=== PATIENT | male | born 1965 | race Caucasian/White ===

== ENCOUNTER 2018-07-04 00:14 | Inpatient (IN) | payer BC ==
--- NOTE | 2018-07-04 00:58 | XR ---
EXAM: XR Chest, 2 Views CLINICAL HISTORY: ITS.REASON XR Reason: Weakness TECHNIQUE: Frontal and lateral views of the chest. COMPARISON: No relevant prior studies available. FINDINGS: Lungs: No consolidation or mass. Pleural space: No effusion. Heart: No cardiomegaly. Mediastinum: Unremarkable. Bones/joints: No acute findings. IMPRESSION: No acute cardiopulmonary process.
[2018-07-04 01:01] LABS: Basophils % (A) 1 %; Eosinophils # (A) 0.2 k/uL (0-0.7); Eosinophils % (A) 3 %; HCT 51.4 % (39.0-53.0); Lymphocytes # (A) 2.1 k/uL (1.0-4.8); Lymphocytes % (A) 31 %; MCH 32.7 pg (25.0-35.0); MCHC 35.1 g/dL (31.0-37.0); MCV 93.3 fL (80.0-100.0); Mean Platelet Volume 6.6; Monocytes # (A) 0.4 k/uL (0-1.0); Monocytes % (A) 5 %; Neutrophils % (A) 58 %; Platelet Count 208 k/uL (150-450); RBC 5.51 m/uL (4.30-5.90); RDW 12.8 % (11.5-15.5); WBC 6.8 k/uL (3.8-10.6)
[2018-07-04] MEDS ORDERED: hydrALAZINE HCL 20 MG/ML 1 ML VIAL IVP STA (01:02)
--- NOTE | 2018-07-04 01:03 | ED ---
Recheck HPI - General Source: patient Mode of arrival: ambulatory Limitations: no limitations <Aliyah Franks - Last Filed: 07/04/18 03:37> <Miesha Mosley - Last Filed: 07/04/18 05:57> - General Chief Complaint: Recheck/Abnormal Lab/Rx Stated Complaint: High Blood Pressure Time Seen by Provider: 07/04/18 00:32 - History of Present Illness Initial Comments: 52-year-old male with past medical history of previous hypertension, currently off medications presenting today for chief complaint of elevation of blood pressure and generalized weakness. Patient states that he just felt off most of the day he cannot further describe this feeling. He states he has had generalized weakness feeling like he has no energy. He states the decreased appetite as well as some nausea. He denies any vomiting, diarrhea, melena, hematochezia, back pain, chest pain, upper extremity paresthesias with jaw pain, fever, urgency, frequency, dysuria. Patient states he so weak he felt like his legs were going to give out on him at one point today. Patient states that this prompted him to take his blood pressure which he noticed was significantly elevated and he present to the emergency department for evaluation. Upon arr ival signs reveal a blood pressure of 231/139. Patient appears well distress. Negative for pain sign. Remaining review of systems negative, patient denies any recent shortness of breath, dyspnea on exertion,abdominal pain, focalized weakness of the upper or lower extremities, loss of sensation/numbness or tingling of the extremities, dysuria or hematuria, constipation, headaches or visual changes, diplopia or any other complaints. (Aliyah Franks) - Related Data Allergies Allergy/AdvReac Type Severity Reaction Status Date / Time No Known Allergies Allergy Verified 07/04/18 00:25 Review of Systems ROS Other: All systems not noted in ROS Statement are negative. <Aliyah Franks - Last Filed: 07/04/18 03:37> ROS Other: All systems not noted in ROS Statement are negative. <Miesha Mosley - Last Filed: 07/04/18 05:57> ROS Statement: Those systems with pertinent positive or pertinent negative responses have been documented in the HPI. Past Medical History Past Medical History: Hyperlipidemia, Hypertension History of Any Multi-Drug Resistant Organisms: None Reported Past Surgical History: Tonsillectomy Additional Past Surgical History / Comment(s): TMJ Past Psychological History: No Psychological Hx Reported Smoking Status: Current every day smoker Past Alcohol Use History: Occasional Past Drug Use History: None Reported <GoldenAliyah Michaud - Last Filed: 07/04/18 03:37> - Past Family History Father History Unknown: Yes Family Medical History: AICD/Pacemaker Sister(s) Family Medical History: Myocardial Infarction ([place]) Additional Family Medical History / Comment(s): Past bypass sx and stents <Miesha Mosley P - Last Filed: 07/04/18 05:57> General Exam Limitations: no limitations <Aliyah Franks - Last Filed: 07/04/18 03:37> - General Exam Comments Initial Comments: General: The patient is awake and alert, in no distress, and does not appear acutely ill. Eye: +3 mm pupils are equal, round and reactive to light, extra-ocular movements are intact. No nystagmus. There is normal conjunctiva bilaterally. No signs of icterus. Ears, nose, mouth and throat: There are moist mucous membranes and no oral lesions. Neck: The neck is supple, there is no tenderness or JVD. Cardiovascular: There is a regular rate and rhythm. No murmur, rub or gallop is appreciated. Respiratory: Lungs are clear to auscultation, respirations are non-labored, breath sounds are equal. No wheezes, stridor, rales, or rhonchi. Gastrointestinal: Soft, non-distended, non-tender abdomen without masses or organomegaly noted. There is no rebound or guarding present. No pulsatile masses. Bowel sounds are unremarkable. Musculoskeletal: Normal ROM, no tenderness. Strength 5/5 of the upper and lower extremities equal and comparison bilaterally. Sensation intact of the upper and lower extremities equal and comparison bilaterally. Radial and DP pulses equal bilaterally 2+. [id number] smooth coordinated. No pronator drift. Neurological: A&O x 3. CN II-XII intact, There are no obvious motor or sensory deficits. Coordination appears grossly intact. Speech is normal. Skin: Skin is warm and dry and no rashes or lesions are noted. No lower extremity edema Psychiatric: Cooperative, appropriate mood & affect, normal judgment. (Aliyah Franks) Course Vital Signs 07/04/18 07/04/18 07/04/18 00:21 00:37 00:40 Temperature 98.6 F Pulse Rate 90 84 Respiratory 18 30 H 33 H Rate Blood Pressure 231/139 O2 Sat by Pulse 98 Oximetry 07/04/18 07/04/18 07/04/18 00:54 01:00 01:13 Temperature Pulse Rate 88 82 81 Respiratory 14 29 H 17 Rate Blood Pressure O2 Sat by Pulse Oximetry 07/04/18 07/04/18 07/04/18 01:20 01:23 01:40 Temperature Pulse Rate 81 80 90 Respiratory 26 H 16 24 Rate Blood Pressure 200/122 196/110 O2 Sat by Pulse 100 95 Oximetry 07/04/18 07/04/18 07/04/18 01:50 02:10 02:20 Temperature Pulse Rate 95 100 101 H Respiratory 23 8 L 18 Rate Blood Pressure 193/109 183/103 183/100 O2 Sat by Pulse 94 L 95 93 L Oximetry 07/04/18 07/04/18 07/04/18 02:30 02:40 02:50 Temperature Pulse Rate 92 96 98 Respiratory 11 L 15 26 H Rate Blood Pressure 169/101 174/97 165/96 O2 Sat by Pulse 94 L 94 L 94 L Oximetry 07/04/18 04:30 Temperature 98.4 F Pulse Rate 88 Respiratory 10 L Rate Blood Pressure 177/113 O2 Sat by Pulse 95 Oximetry Medical Decision Making - Lab Data Result diagrams: 07/04/18 00:47 07/04/18 00:47 <Aliyah Franks - Last Filed: 07/04/18 03:37> - Lab Data Result diagrams: 07/04/18 00:47 07/04/18 00:47 <Miesha Mosley - Last Filed: 07/04/18 05:57> - Medical Decision Making 52-year-old male presenting for generalized weakness and elevation of blood pressure. Initial blood pressure reading 231/139. Patient has no focal neurolo gical deficits. No oliguria, anuria. No complaints of chest pain or shortness of breath. CXR WNL. EKG no ST elevation or depression. EKG evaluated by myself and Dr. Mosley. Pt BP decreased by 25% MAP using hydralazine and Vasotec. Patient troponin returned elevated 0.015. Remaining laboratory studies within acceptable limits. Creatinine within normal limits. Patient will be elevated for serial troponins. ASA administered. Patient admitted for hypertensive emergency. Cardiology on consult. Patient agreeable to admission, all questions answered to the best of my ability. Pt transferred to the floor in stable condition. Critical time spent: 35 minutes History, Physical, reviewing labs, relaying results to patient, clinical decision making, disposition with attending provider. (Aliyah Franks) I personally saw and examined the patient. I reviewed and agree with the mid- level provider findings including all diagnostic interpretations and treatment plans as written unless otherwise stated. I discussed patient care with Dr. Au who accepts the admission for hypertensive emergency with elevated troponin. (Miesha Mosley) - Lab Data Lab Results 07/04/18 07/04/18 07/04/18 Range/Units 00:47 00:47 00:47 WBC 6.8 (3.8-10.6) k/uL RBC 5.51 (4.30-5.90) m/uL Hgb 18.0 H (13.0-17.5) gm/dL Hct 51.4 (39.0-53.0) % MCV 93.3 (80.0-100.0) fL MCH 32.7 (25.0-35.0) pg MCHC 35.1 (31.0-37.0) g/dL RDW 12.8 (11.5-15.5) % Plt Count 208 (150-450) k/uL Neutrophils % 58 % Lymphocytes % 31 % Monocytes % 5 % Eosinophils % 3 % Basophils % 1 % Neutrophils # 4.0 (1.3-7.7) k/uL Lymphocytes # 2.1 (1.0-4.8) k/uL Monocytes # 0.4 (0-1.0) k/uL Eosinophils # 0.2 (0-0.7) k/uL Basophils # 0.0 (0-0.2) k/uL PT 10.3 (9.0-12.0) sec INR 1.0 (<1.2) APTT 24.9 (22.0-30.0) sec Sodium 135 L (137-145) mmol/L Potassium 4.0 (3.5-5.1) mmol/L Chloride 101 (98-107) mmol/L Carbon Dioxide 25 (22-30) mmol/L Anion Gap 9 mmol/L BUN 15 (9-20) mg/dL Creatinine 0.85 (0.66-1.25) mg/dL Est GFR (CKD-EPI)AfAm >90 (>60 ml/min/1.73 sqM) Est GFR (CKD-EPI)NonAf >90 (>60 ml/min/1.73 sqM) Glucose 105 H (74-99) mg/dL Calcium 9.2 (8.4-10.2) mg/dL Total Bilirubin 1.3 (0.2-1.3) mg/dL AST 53 (17-59) U/L ALT 49 (21-72) U/L Alkaline Phosphatase 77 (38-126) U/L Troponin I (0.000-0.034) ng/mL Total Protein 7.2 (6.3-8.2) g/dL Albumin 4.6 (3.5-5.0) g/dL 07/04/18 Range/Units 00:47 WBC (3.8-10.6) k/uL RBC (4.30-5.90) m/uL Hgb (13.0-17.5) gm/dL Hct (39.0-53.0) % MCV (80.0-100.0) fL MCH (25.0-35.0) pg MCHC (31.0-37.0) g/dL RDW (11.5-15.5) % Plt Count (150-450) k/uL Neutrophils % % Lymphocytes % % Monocytes % % Eosinophils % % Basophils % % Neutrophils # (1.3-7.7) k/uL Lymphocytes # (1.0-4.8) k/uL Monocytes # (0-1.0) k/uL Eosinophils # (0-0.7) k/uL Basophils # (0-0.2) k/uL PT (9.0-12.0) sec INR (<1.2) APTT (22.0-30.0) sec Sodium (137-145) mmol/L Potassium (3.5-5.1) mmol/L Chloride (98-107) mmol/L Carbon Dioxide (22-30) mmol/L Anion Gap mmol/L BUN (9-20) mg/dL Creatinine (0.66-1.25) mg/dL Est GFR (CKD-EPI)AfAm (>60 ml/min/1.73 sqM) Est GFR (CKD-EPI)NonAf (>60 ml/min/1.73 sqM) Glucose (74-99) mg/dL Calcium (8.4-10.2) mg/dL Total Bilirubin (0.2-1.3) mg/dL AST (17-59) U/L ALT (21-72) U/L Alkaline Phosphatase (38-126) U/L Troponin I 0.015 (0.000-0.034) ng/mL Total Protein (6.3-8.2) g/dL Albumin (3.5-5.0) g/dL - EKG Data EKG Comments: A 12-lead EKG was performed and shows the following: Rate is 83bpm, and rhythm is normal sinus. There are normal QRS complexes. ST segments have no elevation or depression, and CT segments appear normal. Left axis deviation. 83 bpm, CT interval 156 ms, QRS samaritan 94 ms, QT/QTC 404/474 ms. (Aliyah Franks) Disposition Is patient prescribed a controlled substance at d/c from ED?: No Time of Disposition: 03:06 Decision to Admit Reason: Admit from EC Decision Date: 07/04/18 Decision Time: 03:06 <Aliyah Franks - Last Filed: 07/04/18 03:37> <Miesha Mosley - Last Filed: 07/04/18 05:57> Clinical Impression: Hypertensive emergency, Elevated troponin, Generalized weakness Disposition: ADMITTED IP TO THIS HOSP Condition: Stable
[2018-07-04 01:12] LABS: ALT 49 U/L (21-72); AST 53 U/L (17-59); Albumin 4.6 g/dL (3.5-5.0); Alkaline Phosphatase 77 U/L (38-126); Anion Gap 9 mmol/L; Blood Urea Nitrogen 15 mg/dL (9-20); Calcium 9.2 mg/dL (8.4-10.2); Carbon Dioxide 25 mmol/L (22-30); Chloride 101 mmol/L (98-107); Glucose 105 mg/dL (74-99); Sodium 135 mmol/L (137-145); Total Bilirubin 1.3 mg/dL (0.2-1.3); Total Protein 7.2 g/dL (6.3-8.2)
[2018-07-04 01:33] LABS: Partial Thromboplastin Time 24.9 sec (22.0-30.0); Prothrombin Time 10.3 sec (9.0-12.0)
[2018-07-04] MEDS ORDERED: ENALAPRILAT 1.25 MG/ML 1 ML VIAL IVP STA ×2 (01:56→02:29)
[2018-07-04] MEDS ORDERED: ASPIRIN 325 MG TAB PO STA (02:17)
[2018-07-04] MEDS ORDERED: NITROGLYCERIN SL TABS 0.4 MG TAB SUBLINGUAL PRN (03:04)
[2018-07-04 04:21] LABS: Appearance,Urine Clear (Clear); Bilirubin,Urine Negative (Negative); Blood,Urine Negative (Negative); Color,Urine Yellow; Glucose,Urine (UA) Negative (Negative); Ketones,Urine Trace (Negative); Leukocyte Esterase,Urine Negative (Negative); Nitrite,Urine Negative (Negative); Protein,Urine Trace (Negative); Specific Gravity,Urine 1.016 (1.001-1.035)
[2018-07-04 05:12] LABS: Glucose,Whole Blood 116 mg/dL (75-99)
[2018-07-04 05:19] VITALS: BMI 35.7
[2018-07-04] MEDS: LISINOPRIL 20 MG TAB PO SCH ×2 (05:49→05:50)
[2018-07-04] MEDS: ENALAPRILAT 1.25 MG/ML 1 ML VIAL IVP PRN (06:54)
--- NOTE | 2018-07-04 09:24 | P.CRDCN ---
History of Present Illness Consult date: 07/04/18 History of present illness: This is a 52-year-old gentleman with history of smoking and family history of ischemic heart disease who was admitted through the emergency room with complaints of extreme weakness and fatigue. Apparently the symptoms started suddenly yesterday morning. Patient also had poor appetite. In the emergency room, His blood pressure was found to be in the range of about 220/130. Patient was treated with IV Vasotec and hydralazine with better control of his blood pressure. He denied any chest pain or shortness of breath. He claimed that he had high blood pressure in the past when he was overweight. He was treated with medication at the time. However, patient does exercise and lost weight and he was taken off the medications. Recently patient came his weight back, but hasn't checked his blood pressures. Since admission, it was noted that his blood pressure was high in the left arm compared to the right arm. There appears to be a difference of about 30-40 mmHg. He doesn't have any symptoms of pain in the right arm. His pedal pulses appear to be intact. At this time I will add Norvasc to the current regimen for further control of blood pressure. I'll get thyroid function studies. I will get arterial Doppler studies. We'll also get an echocardiogram and lipid panel. Further condition depend upon the findings and about test and clinical course. Patient does have history of ischemic heart disease in the family. One of his sister had bypass surgery in her 50s. Review of Systems REVIEW OF SYSTEMS: CONSTITUTIONAL:. Patient is doing well. No complaints of fever or chills EYES: Denies diplopia, blurring of vision EARS, NOSE, MOUTH, THROAT: Denies headaches, denies sore throat. CARDIOVASCULAR: Denies chest pain, denies shortness of breath, denies palpitations RESPIRATORY: Denies shortness of breath, denies cough. GASTROINTESTINAL: Denies change in appetite, denies abdominal pain, denies diarrhea GENITOURINARY: Denies hematuria, denies infections. MUSKULOSKELETAL: Denies pain, denies swelling. Denies any cramps or claudication INTEGUMENTARY: Denies rash, denies eczema. NEUROLOGICAL: Denies focal weakness, or visual disturbance. Denies any dizziness or syncope PSYCHIATRIC: Denies anxiety, denies depression. HEMATOLOGIC/LYMPHATIC: Denies any bleeding, denies enlarged lymph nodes. Past Medical History Past Medical History: Hyperlipidemia, Hypertension History of Any Multi-Drug Resistant Organisms: None Reported Past Surgical History: Tonsillectomy Additional Past Surgical History / Comment(s): TMJ Past Psychological History: No Psychological Hx Reported Smoking Status: Current every day smoker Past Alcohol Use History: Occasional Past Drug Use History: None Reported - Past Family History Father History Unknown: Yes Family Medical History: AICD/Pacemaker Sister(s) Family Medical History: Myocardial Infarction ([place]) Additional Family Medical History / Comment(s): Past bypass sx and stents Medications and Allergies Home Medications Medication Instructions Recorded Confirmed Type No Known Home Medications 07/04/18 07/04/18 History Allergies Allergy/AdvReac Type Severity Reaction Status Date / Time No Known Allergies Allergy Verified 07/04/18 07:41 Physical Exam Vitals: Vital Signs Temp Pulse Resp BP BP BP Pulse Ox 07/04/18 08:05 78 144/90 07/04/18 08:03 144/90 07/04/18 08:00 98.0 F 79 16 162/104 162/104 94 L 07/04/18 06:45 87 25 H 179/109 07/04/18 04:37 86 16 170/96 94 L 07/04/18 04:30 98.4 F 88 10 L 177/113 95 07/04/18 02:50 98 26 H 165/96 94 L 07/04/18 02:40 96 15 174/97 94 L 07/04/18 02:30 92 11 L 169/101 94 L 07/04/18 02:20 101 H 18 183/100 93 L 07/04/18 02:10 100 8 L 183/103 95 07/04/18 01:50 95 23 193/109 94 L 07/04/18 01:40 90 24 196/110 95 07/04/18 01:23 80 16 200/122 100 07/04/18 01:20 81 26 H 07/04/18 01:13 81 17 07/04/18 01:00 82 29 H 07/04/18 00:54 88 14 07/04/18 00:40 84 33 H 07/04/18 00:37 30 H 07/04/18 00:21 98.6 F 90 18 231/139 98 Intake and Output 07/03/18 07/04/18 07/04/18 22:59 06:59 14:59 Other: # Voids 1 Weight 122.8 kg GENERAL EXAM: Patient is alert and oriented and doesn't appear to be in any acute distress HEENT: Normocephalic. Normal reaction of pupils, equal size, normal range of extraocular motion. No erythema or exudates in the throat. NECK: No masses, no nuchal rigidity. CHEST: No chest wall deformity. LUNGS: Equal air entry with no crackles or wheeze. HEART: S1 and S2 normal with no audible mumurs or gallops. Regular rhythm, femorals equal on both sides.. ABDOMEN: No hepatosplenomegaly, normal bowel sounds, no guarding or rigidity. SKIN: No rashes CENTRAL NERVOUS SYSTEM: No focal deficits. EXTREMITIES: No cyanosis, clubbing or edema. Results 07/04/18 00:47 07/04/18 00:47 Cardiac Enzymes 07/04/18 07/04/18 07/04/18 Range/Units 00:47 00:47 05:12 AST 53 (17-59) U/L Troponin I 0.015 0.023 (0.000-0.034) ng/mL Coagulation 07/04/18 Range/Units 00:47 PT 10.3 (9.0-12.0) sec APTT 24.9 (22.0-30.0) sec CBC 07/04/18 Range/Units 00:47 WBC 6.8 (3.8-10.6) k/uL RBC 5.51 (4.30-5.90) m/uL Hgb 18.0 H (13.0-17.5) gm/dL Hct 51.4 (39.0-53.0) % Plt Count 208 (150-450) k/uL Comprehensive Metabolic Panel 07/04/18 Range/Units 00:47 Sodium 135 L (137-145) mmol/L Potassium 4.0 (3.5-5.1) mmol/L Chloride 101 (98-107) mmol/L Carbon Dioxide 25 (22-30) mmol/L BUN 15 (9-20) mg/dL Creatinine 0.85 (0.66-1.25) mg/dL Glucose 105 H (74-99) mg/dL Calcium 9.2 (8.4-10.2) mg/dL AST 53 (17-59) U/L ALT 49 (21-72) U/L Alkaline Phosphatase 77 (38-126) U/L Total Protein 7.2 (6.3-8.2) g/dL Albumin 4.6 (3.5-5.0) g/dL Current Medications Generic Name Dose Route Start Last Admin Trade Name Freq PRN Reason Stop Dose Admin Amlodipine Besylate 5 mg 07/04/18 09:30 Norvasc PO DAILY DAVID Aspirin 325 mg 07/05/18 09:00 Aspirin PO DAILY DAVID Enalaprilat 1.25 mg 07/04/18 05:32 07/04/18 06:54 Vasotec IVP 1.25 mg Q6HR PRN Administration Blood Pressure - High Lisinopril 20 mg 07/04/18 05:32 07/04/18 05:50 Zestril PO Not Given DAILY DAVID Nitroglycerin 0.4 mg 07/04/18 03:04 Nitrostat SUBLINGUAL Q5M PRN Chest Pain Intake and Output 07/03/18 07/04/18 07/04/18 22:59 06:59 14:59 Other: # Voids 1 Weight 122.8 kg 07/04/18 00:47 07/04/18 00:47 EKG Interpretations (text) Sinus rhythm without any acute changes Assessment and Plan (1) Generalized weakness Current Visit: Yes Status: Acute Code(s): R53.1 - WEAKNESS SNOMED Code(s): 69243019 (2) Hypertensive emergency Current Visit: Yes Status: Acute Code(s): I16.1 - HYPERTENSIVE EMERGENCY SNOMED Code(s): 388429355625037 (3) Peripheral vascular disease Current Visit: Yes Status: Acute Code(s): I73.9 - PERIPHERAL VASCULAR DISEASE, UNSPECIFIED SNOMED Code(s): 268854959 (4) Family history of ischemic heart disease Current Visit: Yes Status: Acute Code(s): Z82.49 - FAMILY HX OF ISCHEM HEART DIS AND OTH DIS OF THE CIRC SYS SNOMED Code(s): 101599030 Plan: Patient will be continued on CRIS inhibitor. I will add amlodipine 5 mg. We'll check thyroid function studies. We'll also get an arterial Doppler studies. Echocardiogram will be done. Further recommendations depend upon the findings on the above test and clinical course
[2018-07-04] MEDS ORDERED: amLODIPine 5 MG TAB PO SCH (09:30)
[2018-07-04 09:44] LABS: Magnesium 1.8 mg/dL (1.6-2.3)
--- NOTE | 2018-07-04 11:29 | P.HPIM ---
History of Present Illness H&P Date: 07/04/18 This is a 52-year-old male patient of Dr. Breen. Patient presented to the ER with complaints of elevated blood pressure. Patient reports that he just felt off yesterday including increased weakness and warm. Patient also complained of decreased appetite with some nausea. Patient reports that he was previously on medication for high blood pressure and had lost weight and no longer required. Additional medical history includes hyperlipidemia and nicotine dependence. on Admission blood pressure 231/139. Chest x-ray completed showing no acute cardiopulmonary process. EKG completed showing normal sinus rhythm, possible left atrial enlargement. Per nursing staff patient had significant difference in blood pressures from left to right arm. Upper extremity ultrasound completed results pending. Cardiology services have been consulted. Patient was given Vasotec and hydralazine IV. Patient has been started on Norvasc and lisinopril. Blood pressure has improved. At this time patient denies chest pain or shortness of breath. Patient denies nausea vomiting or diarrhea. Patient de nies any urinary burning or frequency. Review of Systems Reviewed in electronic record Past Medical History Past Medical History: Hyperlipidemia, Hypertension History of Any Multi-Drug Resistant Organisms: None Reported Past Surgical History: Tonsillectomy Additional Past Surgical History / Comment(s): TMJ Past Psychological History: No Psychological Hx Reported Smoking Status: Current every day smoker Past Alcohol Use History: Occasional Past Drug Use History: None Reported - Past Family History Father History Unknown: Yes Family Medical History: AICD/Pacemaker Sister(s) Family Medical History: Myocardial Infarction ([place]) Additional Family Medical History / Comment(s): Past bypass sx and stents Medications and Allergies Home Medications Medication Instructions Recorded Confirmed Type No Known Home Medications 07/04/18 07/04/18 History Allergies Allergy/AdvReac Type Severity Reaction Status Date / Time No Known Allergies Allergy Verified 07/04/18 07:41 Physical Exam Vitals: Vital Signs Temp Pulse Resp BP BP BP Pulse Ox 07/04/18 08:05 78 144/90 07/04/18 08:03 144/90 07/04/18 08:00 98.0 F 79 16 162/104 162/104 94 L 07/04/18 06:45 87 25 H 179/109 07/04/18 04:37 86 16 170/96 94 L 07/04/18 04:30 98.4 F 88 10 L 177/113 95 03/13/19 02:50 98 26 H 165/96 94 L 07/04/18 02:40 96 15 174/97 94 L 07/04/18 02:30 92 11 L 169/101 94 L 07/04/18 02:20 101 H 18 183/100 93 L 07/04/18 02:10 100 8 L 183/103 95 07/04/18 01:50 95 23 193/109 94 L 07/04/18 01:40 90 24 196/110 95 07/04/18 01:23 80 16 200/122 100 07/04/18 01:20 81 26 H 07/04/18 01:13 81 17 07/04/18 01:00 82 29 H 07/04/18 00:54 88 14 07/04/18 00:40 84 33 H 07/04/18 00:37 30 H 07/04/18 00:21 98.6 F 90 18 231/139 98 Intake and Output 07/03/18 07/04/18 07/04/18 22:59 06:59 14:59 Other: Voiding Method Toilet Urinal # Voids 1 Weight 122.8 kg Head normocephalic Neck supple Lungs clear to auscultation bilaterally no wheezing or crackles Heart regular rate and rhythm S1-S2, no rub or gallop Abdomen is soft nontender nondistended positive bowel sounds no hepatosplenomegaly Extremities no edema Neuro alert and orientated to 3 Results CBC & Chem 7: 07/04/18 00:47 07/04/18 00:47 Labs: Abnormal Lab Results - Last 24 Hours (Table) 07/04/18 07/04/18 07/04/18 Range/Units 00:47 00:47 00:47 Hgb 18.0 H (13.0-17.5) gm/dL Sodium 135 L (137-145) mmol/L Glucose 105 H (74-99) mg/dL POC Glucose (mg/dL) (75-99) mg/dL LDL Cholesterol, Calc 113 H (0-99) mg/dL HDL Cholesterol 65 H (40-60) mg/dL Urine Protein (Negative) Urine Ketones (Negative) 07/04/18 07/04/18 Range/Units 04:00 05:01 Hgb (13.0-17.5) gm/dL Sodium (137-145) mmol/L Glucose (74-99) mg/dL POC Glucose (mg/dL) 116 H (75-99) mg/dL LDL Cholesterol, Calc (0-99) mg/dL HDL Cholesterol (40-60) mg/dL Urine Protein Trace H (Negative) Urine Ketones Trace H (Negative) Thrombosis Risk Factor Assmnt - Choose All That Apply Any of the Below Risk Factors Present?: Yes Each Factor Represents 1 point: Age 41-60 years, Obesity (BMI >25) Other Risk Factors: No Thrombosis Risk Factor Assessment Total Risk Factor Score: 2 Thrombosis Risk Factor Assessment Level: Low Risk Assessment and Plan Assessment: 1. Hypertensive emergency. Initial blood pressure 231/139 patient was given IV hydralazine and Vasotec. Cardiac he services consulted. 2-D echo has been ordered. Norvasc and lisinopril has been added. Blood pressure has improved to 140s. Per nursing staff patient had given difference in blood pressure between left and right arm. Ultrasound of upper extremity ordered 2. Hyperlipidemia 3. Previous history of essential hypertension. Patient reports that he was on antihypertensives in the past but then lost weight and no longer required 3. Nicotine dependence. Patient educated greater than 3 minutes patient. Nicotine patch ordered DVT prophylaxis Lovenox. GI prophylaxis CBC, CMP and hemoglobin A1c ordered Cardiology consulted Time with Patient: Greater than 30 (Greater than 60% of the total time spent in counseling and coordination of care. I performed an examination of the patient and discussed their management with the Nurse Practitioner. I have reviewed the Nurse Practitioner's notes and agree with the documented findings and plan of care)
--- NOTE | 2018-07-04 12:51 | ECHOF ---
Referral Reason:Chest pain and cardiomyopathy MEASUREMENTS -------- HEIGHT: 185.4 cm WEIGHT: 122.5 kg BP: 144/90 RVIDd: 3.4 cm (< 3.3) IVSd: 1.5 cm (0.6 - 1.1) LVIDd: 4.8 cm (3.9 - 5.3) LVPWd: 1.5 cm (0.6 - 1.1) IVSs: 1.8 cm LVIDs: 2.1 cm LVPWs: 1.8 cm LAESV Index (A-L): 18.34 ml/m Ao Diam: 3.8 cm (2.0 - 3.7) AV Cusp: 2.1 cm (1.5 - 2.6) LA Diam: 3.4 cm (2.7 - 3.8) MV E Jesús: 0.69 m/s MV DecT: 292 ms MV A Jesús: 1.01 m/s MV E/A Ratio: 0.69 AV maxP.25 mmHg AV meanP.99 mmHg RAP: 5.00 mmHg RVSP: 20.23 mmHg FINDINGS -------- Sinus rhythm. This was a technically adequate study. The left ventricular size is normal. There is moderate concentric left ventricular hypertrophy. O verall left ventricular systolic function is normal with, an EF between 60 - 65 %. The right ventricle is mildly enlarged. Normal LA size by volume 22+/-6 ml/m2. The right atrium is normal in size. The aortic valve is trileaflet and appears structurally normal. Peak/mean gradient across the Aorti c Valve is 15.25mmHg / 9.99mmHg. The mitral valve is normal. Mild mitral regurgitation is present. Trace tricuspid regurgitation present. Right ventricular systolic pressure is normal at < 35 mmHg. The right ventricular systolic pressure, as measured by Doppler, is 20.23mmHg. Trace/mild (physiologic) pulmonic regurgitation. The aortic root size is normal. Normal inferior vena cava with normal inspiratory collapse consistent with estimated right atrial pre ssure of 5 mmHg. There is no pericardial effusion. CONCLUSIONS -------- 1. Sinus rhythm. 2. This was a technically adequate study. 3. The left ventricular size is normal. 4. There is moderate concentric left ventricular hypertrophy. 5. Overall left ventricular systolic function is normal with, an EF between 60 - 65 %. 6. The right ventricle is mildly enlarged. 7. Normal LA size by volume 22+/-6 ml/m2. 8. The aortic valve is trileaflet and appears structurally normal. 9. Peak/mean gradient across the Aortic Valve is 15.25mmHg / 9.99mmHg. 10. Mild mitral regurgitation is present. 11. Trace tricuspid regurgitation present. 12. Right ventricular systolic pressure is normal at < 35 mmHg. 13. Trace/mild (physiologic) pulmonic regurgitation. 14. The aortic root size is normal. 15. There is no pericardial effusion. FUSION JUNCTURE GRINDER: Jarred Maloney RDCS
[2018-07-04] MEDS: NICOTINE 14MG/24HR PATCH TRANSDERM SCH (14:07)
[2018-07-04 19:00] LABS: Hemoglobin A1C 5.4 % (4.0-6.0)
[2018-07-05 05:00] LABS: Basophils % (A) 1 %; Eosinophils # (A) 0.2 k/uL (0-0.7); Eosinophils % (A) 3 %; HCT 52.7 % (39.0-53.0); HGB 17.7 gm/dL (13.0-17.5); Lymphocytes # (A) 2.2 k/uL (1.0-4.8); Lymphocytes % (A) 34 %; MCH 32.6 pg (25.0-35.0); MCHC 33.7 g/dL (31.0-37.0); MCV 96.8 fL (80.0-100.0); Mean Platelet Volume 6.2; Monocytes # (A) 0.4 k/uL (0-1.0); Monocytes % (A) 7 %; Neutrophils # (A) 3.5 k/uL (1.3-7.7); Neutrophils % (A) 54 %; Platelet Count 200 k/uL (150-450); RBC 5.44 m/uL (4.30-5.90); RDW 13.2 % (11.5-15.5); WBC 6.5 k/uL (3.8-10.6)
[2018-07-05 05:10] LABS: ALT 37 U/L (21-72); AST 32 U/L (17-59); Albumin 3.7 g/dL (3.5-5.0); Alkaline Phosphatase 66 U/L (38-126); Anion Gap 6 mmol/L; Blood Urea Nitrogen 14 mg/dL (9-20); Calcium 9.4 mg/dL (8.4-10.2); Carbon Dioxide 25 mmol/L (22-30); Chloride 105 mmol/L (98-107); Cholesterol 180 mg/dL (<200); Glucose 105 mg/dL (74-99); HDL Cholesterol 57 mg/dL (40-60); LDL Cholesterol,Calculated 97 mg/dL (0-99); Potassium 4.2 mmol/L (3.5-5.1); Sodium 136 mmol/L (137-145); Total Bilirubin 2.3 mg/dL (0.2-1.3); Total Protein 6.1 g/dL (6.3-8.2); Triglycerides 128 mg/dL (<150)
[2018-07-05] MEDS: LISINOPRIL 20 MG TAB PO SCH ×2 (08:07→20:41)
[2018-07-05] MEDS: ASPIRIN 325 MG TAB PO SCH (08:07)
[2018-07-05] MEDS: PANTOPRAZOLE 40 MG TABLET PO SCH (08:07)
[2018-07-05] MEDS: amLODIPine 10 MG TAB PO SCH (08:07)
[2018-07-05] MEDS: ENOXAPARIN 40 MG/0.4 ML SYRINGE SQ SCH (08:07)
[2018-07-05] MEDS: NICOTINE 14MG/24HR PATCH TRANSDERM SCH (08:07)
--- NOTE | 2018-07-05 08:17 | P.PN ---
Progress Note - Text Progress Note Date: 07/05/18 This is a 51-year-old gentleman who was admitted with complaints of generalized weakness and uncontrolled hypertension. His thyroid function test came back normal. His blood pressure seemed to be better controlled. Still seemed to be on the high side. Denies any chest pain or shortness of breath. No arrhythmias noted. Lungs are clear. Heart is regular. I'm going to increase the dose of the Norvasc to 10 mg and add hydrochlorothiazide. Increase activity as tolerated. Possible discharge within 24 hours. Lab values showed a hemoglobin of 417.7. White count is 6.5. Electoral lites are within normal limits. Creatinine is 0.76. Vascular studies did not reveal any significant evidence of obstruction. Final report is pending. GENERAL EXAM: Patient is alert and oriented and doesn't appear to be in any acute distress HEENT: Normocephalic. Normal reaction of pupils, equal size, normal range of extraocular motion. No erythema or exudates in the throat. NECK: No masses, no nuchal rigidity. CHEST: No chest wall deformity. LUNGS: Equal air entry with no crackles or wheeze. HEART: S1 and S2 normal with no audible mumurs or gallops. Regular rhythm, femorals equal on both sides.. ABDOMEN: No hepatosplenomegaly, normal bowel sounds, no guarding or rigidity. SKIN: No rashes CENTRAL NERVOUS SYSTEM: No focal deficits. EXTREMITIES: No cyanosis, clubbing or edema. Final impression: #1. Uncontrolled hypertension. #2. Generalized weakness. Plan: Increase the dose of the Norvasc and add hydrochlorothiazide. Patient could be discharged home. Follow-up as an outpatient
[2018-07-05] MEDS ORDERED: NICOTINE 14MG/24HR PATCH TRANSDERM SCH (09:00)
[2018-07-05] MEDS: HYDROCHLOROTHIAZIDE 25 MG TAB PO SCH (09:43)
[2018-07-05] MEDS: ENALAPRILAT 1.25 MG/ML 1 ML VIAL IVP PRN (14:29)
--- NOTE | 2018-07-05 14:46 | P.PN ---
Subjective Progress Note Date: 07/05/18 This is a 52-year-old male patient of Dr. Breen. Patient presented to the ER with complaints of elevated blood pressure. Patient reports that he just felt off yesterday including increased weakness and warm. Patient also complained of decreased appetite with some nausea. Patient reports that he was previously on medication for high blood pressure and had lost weight and no longer required. Additional medical history includes hyperlipidemia and nicotine dependence. on Admission blood pressure 231/139. Chest x-ray completed showing no acute cardiopulmonary process. EKG completed showing normal sinus rhythm, possible left atrial enlargement. Per nursing staff patient had significant difference in blood pressures from left to right arm. Upper extremity ultrasound completed results pending. Cardiology services have been consulted. Patient was given Vasotec and hydralazine IV. Patient has been started on Norvasc and lisinopril. Blood pressure has improved. At this time patient denies chest pain or shortness of breath. Patient denies nausea vomiting or diarrhea. Patient denies any urinary burning or frequency. on 07/05/2018 patient is alert and oriented 3. Patient has been started on lisinopril, hydrochlorothiazide and Norvasc per cardiology. Patient's blood pressure remains elevated in the 170s. Will increase lisinopril this time. Discussed with patient home first one more night in the hospital. Patient requesting to stay 1 more night due to living on his own. Patient denies chest pain or shortness breath. Patient denies nausea vomiting or diarrhea. Patient denies any urinary burning or frequency Objective - Vital Signs Vital signs: Vital Signs Temp 97.5 F L 07/05/18 04:00 Pulse 82 07/05/18 13:09 Resp 18 07/05/18 08:00 BP 157/100 07/05/18 14:32 Pulse Ox 94 L 07/05/18 11:49 Intake & Output 07/04/18 07/05/18 07/05/18 18:59 06:59 18:59 Intake Total 600 Output Total 550 650 Balance -550 -650 600 Intake: Oral 600 Output: Urine 550 650 Other: Voiding Method Toilet Toilet Toilet Urinal Urinal Urinal # Voids 1 3 - Exam Head normocephalic Neck supple Lungs clear to auscultation bilaterally no wheezing or crackles Heart regular rate and rhythm S1-S2, no rub or gallop Abdomen is soft nontender nondistended positive bowel sounds no hepatosplenomegaly Extremities no edema Neuro alert and orientated to 3 - Labs CBC & Chem 7: 07/05/18 04:35 07/05/18 04:35 Labs: Abnormal Lab Results - Last 24 Hours (Table) 07/05/18 07/05/18 Range/Units 04:35 04:35 Hgb 17.7 H (13.0-17.5) gm/dL Sodium 136 L (137-145) mmol/L Glucose 105 H (74-99) mg/dL Total Bilirubin 2.3 H (0.2-1.3) mg/dL Total Protein 6.1 L (6.3-8.2) g/dL Assessment and Plan Assessment: 1. Hypertensive emergency. Initial blood pressure 231/139 patient was given IV hydralazine and Vasotec. Cardiac he services consulted. 2-D echo has been ordered. Norvasc and lisinopril has been added. Blood pressure has improved to 140s. Per nursing staff patient had given difference in blood pressure between left and right arm. Ultrasound of upper extremity ordered. Blood pressure remains elevated. Patient currently on lisinopril, hydrochlorothiazide and Norvasc. Will increase lisinopril and continue to monitor for 1 more night 2. Hyperlipidemia 3. Previous history of essential hypertension. Patient reports that he was on antihypertensives in the past but then lost weight and no longer required 3. Nicotine dependence. Patient educated greater than 3 minutes patient. Nicotine patch ordered DVT prophylaxis Lovenox. GI prophylaxis Globin A1c 5.4 I performed an examination of the patient and discussed their management with the Nurse Practitioner. I have reviewed the Nurse Practitioner's notes and agree with the documented findings and plan of care
[2018-07-05] MEDS: LABETALOL 100 MG TAB PO SCH ×2 (17:32→23:41)
[2018-07-05] MEDS ORDERED: LABETALOL 100 MG TAB PO SCH (21:00)
[2018-07-06 05:24] LABS: Basophils % (A) 1 %; Eosinophils # (A) 0.2 k/uL (0-0.7); Eosinophils % (A) 3 %; HCT 48.9 % (39.0-53.0); HGB 16.6 gm/dL (13.0-17.5); Lymphocytes # (A) 2.5 k/uL (1.0-4.8); Lymphocytes % (A) 34 %; MCH 33.1 pg (25.0-35.0); MCV 97.4 fL (80.0-100.0); Mean Platelet Volume 6.3; Monocytes # (A) 0.4 k/uL (0-1.0); Monocytes % (A) 6 %; Neutrophils % (A) 55 %; Platelet Count 193 k/uL (150-450); RBC 5.01 m/uL (4.30-5.90); RDW 13.1 % (11.5-15.5); WBC 7.3 k/uL (3.8-10.6)
[2018-07-06 05:37] LABS: ALT 35 U/L (21-72); AST 34 U/L (17-59); Albumin 3.7 g/dL (3.5-5.0); Alkaline Phosphatase 60 U/L (38-126); Anion Gap 8 mmol/L; Blood Urea Nitrogen 15 mg/dL (9-20); Calcium 9.4 mg/dL (8.4-10.2); Carbon Dioxide 25 mmol/L (22-30); Chloride 101 mmol/L (98-107); Glucose 98 mg/dL (74-99); Potassium 4.1 mmol/L (3.5-5.1); Sodium 134 mmol/L (137-145); Total Bilirubin 1.5 mg/dL (0.2-1.3)
[2018-07-06] MEDS: LABETALOL 100 MG TAB PO SCH (07:53)
[2018-07-06] MEDS: ASPIRIN 325 MG TAB PO SCH (07:53)
[2018-07-06] MEDS: ENOXAPARIN 40 MG/0.4 ML SYRINGE SQ SCH (07:53)
[2018-07-06] MEDS: PANTOPRAZOLE 40 MG TABLET PO SCH (07:53)
[2018-07-06] MEDS: NICOTINE 14MG/24HR PATCH TRANSDERM SCH (07:53)
[2018-07-06] MEDS: HYDROCHLOROTHIAZIDE 25 MG TAB PO SCH (07:53)
[2018-07-06] MEDS: LISINOPRIL 20 MG TAB PO SCH (07:54)
[2018-07-06] MEDS: amLODIPine 10 MG TAB PO SCH (07:54)
[2018-07-06 10:21] VITALS: BP 132/88; RESP 16; TEMP 98.2
[2018-07-06 10:22] VITALS: PULSE 62
--- NOTE | 2018-07-06 12:09 | P.DS ---
Providers Date of admission: 07/04/18 02:49 Expected date of discharge: 07/06/18 Attending physician: Ashwini Au Consults: 07/04/18 03:04 Consult Physician Urgent Consulting Provider: Kwabena Hernandez Consult Reason/Comments: hypertensive emergency Do you want consulting provider notified?: Yes, Notify in am Primary care physician: Grazyna B[facility] Hospital Course: Discharge diagnosis 1. Hypertensive emergency. Initial blood pressure 231/139 patient was given IV hydralazine and Vasotec. Cardiac he services consulted. 2-D echo has been ordered. Norvasc and lisinopril has been added. Blood pressure has improved to 140s. Per nursing staff patient had given difference in blood pressure between left and right arm. Ultrasound of upper extremity ordered. Blood pressure remains elevated. Patient currently on lisinopril, hydrochlorothiazide and Norvasc. Labetalol added per cardiology. Patient will be DC'd home on lisinopril, norvasc, labetolol and hydrochlorothiazide. Patient to follow-up closely with PCP and cardiology services 2. Hyperlipidemia 3. Previous history of essential hypertension. Patient reports that he was on antihypertensives in the past but then lost weight and no longer required 3. Nicotine dependence. Patient educated greater than 3 minutes patient. Nicotine patch ordered. Patient declined nicotine patch upon discharge A1c 5.4 Hospital course This is a 52-year-old male patient of Dr. Breen. Patient presented to the ER with complaints of elevated blood pressure. Patient reports that he just felt off yesterday including increased weakness and warm. Patient also complained of decreased appetite with some nausea. Patient reports that he was previously on medication for high blood pressure and had lost weight and no longer required. Additional medical history includes hyperlipidemia and nicotine dependence. on Admission blood pressure 231/139. Chest x-ray completed showing no acute cardiopulmonary process. EKG completed showing normal sinus rhythm, possible left atrial enlargement. Per nursing staff patient had significant difference in blood pressures from left to right arm. Upper extremity ultrasound completed results pending. Cardiology services have been consulted. Patient was given Vasotec and hydralazine IV. Patient has been started on Norvasc and lisinopril. Blood pressure has improved. At this time patient denies chest pain or shortness of breath. Patient denies nausea vomiting or diarrhea. Patient denies any urinary burning or frequency. on 07/05/2018 patient is alert and oriented 3. Patient has been started on lisinopril, hydrochlorothiazide and Norvasc per cardiology. Patient's blood pressure remains elevated in the 170s. Will increase lisinopril this time. Discussed with patient home first one more night in the hospital. Patient requesting to stay 1 more night due to living on his own. Patient denies chest pain or shortness breath. Patient denies nausea vomiting or diarrhea. Patient denies any urinary burning or frequency On 07/06/2018 patient is alert and oriented 3. Blood pressure significantly im proved. Cardiac he has added labetalol. Patient will be DC'd home on Norvasc, hydrochlorothiazide, labetalol and lisinopril. Patient advised to follow-up closely with his PCP and cardiology services. At this time patient denies chest pain or shortness of breath. Patient denies nausea vomiting or diarrhea. Patient denies any urinary burning or frequency. Patient presents as he feels ready to go home. I performed an examination of the patient and discussed their management with the Nurse Practitioner. I have reviewed the Nurse Practitioner's notes and agree with the documented findings and plan of care Patient Condition at Discharge: Stable Plan - Discharge Summary New Discharge Prescriptions: New Aspirin 81 mg PO DAILY 30 Days #30 chewable Hydrochlorothiazide [Hydrodiuril] 25 mg PO DAILY 30 Days #30 tab amLODIPine [Norvasc] 10 mg PO DAILY 30 Days #30 tab Labetalol [Trandate] 100 mg PO BID 30 Days #60 tab Lisinopril [Zestril] 20 mg PO BID 30 Days #60 tab Discharge Medication List Aspirin 81 mg PO DAILY 30 Days #30 chewable 07/06/18 [Rx] Hydrochlorothiazide [Hydrodiuril] 25 mg PO DAILY 30 Days #30 tab 07/06/18 [Rx] Labetalol [Trandate] 100 mg PO BID 30 Days #60 tab 07/06/18 [Rx] Lisinopril [Zestril] 20 mg PO BID 30 Days #60 tab 07/06/18 [Rx] amLODIPine [Norvasc] 10 mg PO DAILY 30 Days #30 tab 07/06/18 [Rx] Follow up Appointment(s)/Referral(s): Grazyna Breen MD [Primary Care Provider] - 1-2 days Jermaie Granados MD [STAFF PHYSICIAN] - 1 Week Activity/Diet/Wound Care/Special Instructions: Activity as tolerated Diet heart healthy Discharge Disposition: HOME SELF-CARE
--- NOTE | 2018-07-06 12:31 | P.PN ---
Subjective Progress Note Date: 07/06/18 This patient is admitted with uncontrolled hypertension and weakness. Patient is on multiple medication including labetalol 100 mg twice a day. Lisinopril 20 mg twice a day. Hydrochlorothiazide 25 mg and also Norvasc. His blood pressure is better controlled today. He is in the range of 130/80. Patient is feeling better. His echocardiogram showed normal LV function. Patient could be discharged home. Follow-up in the office in one week Objective - Vital Signs Vital signs: Vital Signs Temp 98.2 F 07/06/18 08:00 Pulse 62 07/06/18 10:00 Resp 16 07/06/18 08:00 BP 132/88 07/06/18 08:00 Pulse Ox 93 L 07/06/18 08:00 Intake & Output 07/05/18 07/06/18 07/06/18 18:59 06:59 18:59 Intake Total 1100 Output Total 1800 325 Balance -700 -325 Weight 119.2 kg Intake: Oral 1100 Output: Urine 1800 325 Other: Voiding Method Toilet Toilet Toilet Urinal Urinal Urinal # Voids 3 2 - Exam GENERAL EXAM: Patient is alert and oriented and doesn't appear to be in any acute distress HEENT: Normocephalic. Normal reaction of pupils, equal size, normal range of extraocular motion. No erythema or exudates in the throat. NECK: No masses, no nuchal rigidity. CHEST: No chest wall deformity. LUNGS: Equal air entry with no crackles or wheeze. HEART: S1 and S2 normal with no audible mumurs or gallops. Regular rhythm, femorals equal on both sides.. ABDOMEN: No hepatosplenomegaly, normal bowel sounds, no guarding or rigidity. SKIN: No rashes CENTRAL NERVOUS SYSTEM: No focal deficits. EXTREMITIES: No cyanosis, clubbing or edema. - Labs CBC & Chem 7: 07/06/18 04:33 07/06/18 04:33 Labs: Abnormal Lab Results - Last 24 Hours (Table) 07/06/18 Range/Units 04:33 Sodium 134 L (137-145) mmol/L Total Bilirubin 1.5 H (0.2-1.3) mg/dL Total Protein 6.0 L (6.3-8.2) g/dL Assessment and Plan (1) Generalized weakness Current Visit: Yes Status: Acute Code(s): R53.1 - WEAKNESS SNOMED Code(s): 30994490 (2) Hypertensive emergency Current Visit: Yes Status: Acute Code(s): I16.1 - HYPERTENSIVE EMERGENCY SNOMED Code(s): 787362343944715 (3) Peripheral vascular disease Current Visit: Yes Status: Acute Code(s): I73.9 - PERIPHERAL VASCULAR DISEASE, UNSPECIFIED SNOMED Code(s): 108785484 (4) Family history of ischemic heart disease Current Visit: Yes Status: Acute Code(s): Z82.49 - FAMILY HX OF ISCHEM HEART DIS AND OTH DIS OF THE CIRC SYS SNOMED Code(s): 815852507 Plan: Patient blood pressure is well controlled on current dose of medications. Patient could be discharged home. Follow-up as an outpatient
== END 2018-07-06 15:05 | disposition home or self-care (01) | DRG 305 ==
LOC: EC 00:14 → 2SICU 02:49
PROVIDERS: ADMIT Internal Medicine; ATTEND Internal Medicine
DX: I16.1 Hypertensive emergency (principal); I10 Essential (primary) hypertension; E78.5 Hyperlipidemia, unspecified; F17.200 Nicotine dependence, unspecified, uncomplicated; R74.8 Abnormal levels of other serum enzymes; E66.9 Obesity, unspecified; R53.1 Weakness; I73.9 Peripheral vascular disease, unspecified; Z71.6 Tobacco abuse counseling; Z68.34 Body mass index [BMI] 34.0-34.9, adult; Z82.49 Family history of ischemic heart disease and other diseases of the circulatory system
CPT/HCPCS: 36415; 71046; 80053; 80061; 81003; 83036; 83735; 84443; 84484; 85025; 85610; 85730; 93306; 93923; 96374; 96375; 99285

== ENCOUNTER → 2018-07-26 | Outpatient (CLI) | payer BC ==
[2018-07-26 18:55] LABS: Basophils # (A) 0.1 k/uL (0-0.2); Basophils % (A) 1 %; Eosinophils # (A) 0.2 k/uL (0-0.7); Eosinophils % (A) 2 %; HCT 52.7 % (39.0-53.0); HGB 18.2 gm/dL (13.0-17.5); Lymphocytes # (A) 1.8 k/uL (1.0-4.8); Lymphocytes % (A) 22 %; MCH 32.8 pg (25.0-35.0); MCHC 34.6 g/dL (31.0-37.0); MCV 94.9 fL (80.0-100.0); Mean Platelet Volume 7.4; Monocytes # (A) 0.5 k/uL (0-1.0); Monocytes % (A) 6 %; Neutrophils # (A) 5.3 k/uL (1.3-7.7); Neutrophils % (A) 67 %; Platelet Count 268 k/uL (150-450); RBC 5.55 m/uL (4.30-5.90)
[2018-07-26 19:10] LABS: Anion Gap 11 mmol/L; Blood Urea Nitrogen 14 mg/dL (9-20); Carbon Dioxide 29 mmol/L (22-30); Chloride 100 mmol/L (98-107); Potassium 4.6 mmol/L (3.5-5.1); Sodium 140 mmol/L (137-145)
== END | disposition home or self-care (01) ==
LOC: LABPAT 15:31
PROVIDERS: ATTEND Internal Medicine Cardiovascular Disease
DX: Z01.812 Encounter for preprocedural laboratory examination (principal); I25.118 Atherosclerotic heart disease of native coronary artery with other forms of angina pectoris
CPT/HCPCS: 36415; 80051; 82565; 84520; 85025

== ENCOUNTER 2018-08-07 07:50 | Day surgery (SDC) | payer BC ==
[2018-08-02 10:41] VITALS: BMI 35.6
[~2018-08-07 07:50] MED LIST: ALPRAZolam 0.25 MG TAB PO PRN; ASPIRIN 325 MG TAB PO ONE; NITROGLYCERIN SL TABS 0.4 MG TAB SUBLINGUAL PRN; SODIUM CHLORIDE 0.9% 1,000 ML in EMPTY BAG 1 BAG IV ONE
[2018-08-07] MEDS ORDERED: SODIUM CHLORIDE 0.9% 1,000 ML IV ONE (08:42)
[2018-08-07] MEDS ORDERED: ALPRAZolam 0.25 MG TAB PO ONE (08:42)
[2018-08-07] MEDS ORDERED: LIDOCAINE 1% INJ 10MG/ML (20 ML MDV) ONE (08:56)
[2018-08-07] MEDS ORDERED: fentaNYL (PF) 50 MCG/ML 2 ML AMP ONE (08:56)
[2018-08-07] MEDS ORDERED: VERAPAMIL 2.5 MG/ML 2 ML AMP ONE (08:56)
[2018-08-07] MEDS ORDERED: HEPARIN SODIUM 1,000 UN/ML (10ML VL) ONE (08:57)
[2018-08-07] MEDS: MIDAZOLAM 2 MG/2 ML VIAL IVP ONE ×2 (09:15→10:11)
[2018-08-07] MEDS ORDERED: fentaNYL (PF) 50 MCG/ML 2 ML AMP IV ONE (09:15)
[2018-08-07] MEDS: LIDOCAINE 1% INJ 10MG/ML (20 ML MDV) SQ ONE ×2 (09:18→09:27)
--- NOTE | 2018-08-07 10:03 | P.CARDCATH ---
Date of Procedure: 08/07/18 Preoperative Diagnosis: Positive stress test, family history of ischemic heart disease and hypertension Postoperative Diagnosis: Critical lesion involving the OM branch of the circumflex Procedure(s) Performed: Left heart catheterization without left ventriculography Description of Procedure: HISTORY: This is a 52-year-old gentleman who was recently admitted to the hospital with uncontrolled hypertension and symptoms of shortness of breath. Patient's blood pressure is controlled with medications. His a stress test showed evidence of ischemia involving the inferolateral segments. Patient is advised to have a cardiac catheterization for definitive diagnosis. CONSENT:I have discussed the risks, benefits and alternative therapies for the above-mentioned procedure and for both sedation/analgesia as well as necessary blood product administration, if indicated, as they pertain to this patient. The patient has indicated understanding and acceptance of the risks and procedures discussed. PROCEDURE: Patient was brought to the lab in a fasting state. Patient was given some IV sedation. The right wrist is infiltrated with lidocaine and attempts were made to enter the right radial artery. The pulse was stable and unable been changes. The right coronary artery. The procedure was abandoned and was done from the right femoral approach. The right groin is infiltrated with lidocaine and right femoral artery was entered using Seldinger technique. A 6- [place] catheter was left in place and selective coronary arteriography and left ventriculography was performed. Patient tolerated the procedure well. Femoral angiogram was performed and Angio-Seal was applied for hemostasis. No immediate complications were noted and patient was transferred to [facility] in a stable condition Conscious Sedation: Versed 1mg Fentanyl 50 g Duration 22minutes HEMODYNAMICS: The aortic pressure is 80 to 100 systolic. The left ventricle end-diastolic pressure was about 4. There was no gradient across the aortic valve SELECTIVE CORONARY ARTERIOGRAPHY: LEFT MAIN: The left main is short and divides immediately into the left anterior descending and circumflex. This vessel is free of occlusive disease THE LEFT ANTERIOR DESCENDING CORONARY ARTERY:. This is a good caliber vessel and slightly ectatic and reaches the apex. The vessel is free of any occlusive disease. Use ice to good-sized septal and moderate caliber diagonal branch. THE LEFT CIRCUMFLEX AND IS CORONARY ARTERY: This is a good caliber vessel giving rise to good-sized OM branch. The OM branch has about 90% stenosis in the proximal portion THE RIGHT CORONARY ARTERY:. This is a dominant vessel giving rise to PDA and PLV and good in size. The right coronary artery is free of any significant focal occlusive disease LEFT VENTRICULOGRAPHY: Not performed. LV function by echo is normal FINAL IMPRESSION: Critical lesion involving the OM branch of the circumflex. The rest of the coronary system is free of any occlusive disease PLAN:. Stent placement of the OM branch PROGNOSIS: Fair with successful therapy
[2018-08-07] MEDS ORDERED: BIVALIRUDIN 250 MG in SODIUM CHLORIDE 0.9% 50 ML IV ONE (10:20)
[2018-08-07] MEDS ORDERED: BIVALIRUDIN BOLUS 250 MG/50 ML IV ONE (10:20)
[2018-08-07] MEDS ORDERED: CLOPIDOGREL 75 MG TAB ONE ×2 (10:21→10:22)
[2018-08-07] MEDS ORDERED: CLOPIDOGREL 75 MG TAB PO ONE (10:23)
[2018-08-07] MEDS ORDERED: IOPAMIDOL-370 100ML BTL INJ ONE ×2 (10:29→10:47)
[2018-08-07] MEDS ORDERED: NITROGLYCERIN 1000MCG/10ML SYRINGE INTRACORON ONE (10:33)
[2018-08-07] MEDS ORDERED: MAG HYDROX/AL HYDROX/SIMETH 30 ML CUP PO PRN (10:44)
[2018-08-07] MEDS ORDERED: ZOLPIDEM 5 MG TAB PO PRN (10:44)
[2018-08-07] MEDS ORDERED: RX INFO: IV CONTRAST WAS GIVEN 1 EACH MISC MISCELLANE PRN (10:44)
[2018-08-07] MEDS ORDERED: ATROPINE SULFATE 0.1 MG/ML 10ML SYRINGE IV PRN (10:44)
[2018-08-07] MEDS ORDERED: NITROGLYCERIN SL TABS 0.4 MG TAB SUBLINGUAL PRN (10:44)
[2018-08-07] MEDS ORDERED: SODIUM CHLORIDE 0.9% 1,000 ML IV SCH (10:45)
--- NOTE | 2018-08-07 11:24 | LTR ---
August 07, 2018 Re: Daniel Salazar Dear Dr. Breen: MrJoanna Salazar underwent a heart catheterization by Dr. Granados and was found to have severe disease involving OM1 of the left circumflex. I did perform successful stenting of the left circumflex with good angiographic results and without any complication. Thank you for allowing me to participate in his care and please do not hesitate to call if you have any question or concern. Sincerely, MD NICKIE Ybarra / ERNIEN: [id number] /
--- NOTE | 2018-08-07 11:32 | PTCA ---
PERCUTANEOUSTRANS CORORONARY ANGIOGRAPHY DATE OF SERVICE: 08/07/2018 PERFORMING PHYSICIAN: Nikko Acosta MD, Dairy Powder Mixer Operator. PROCEDURE PERFORMED: Successful stenting of the first obtuse marginal branch of left circumflex using 4.0 x 12 mm Xience CHARISMA with an excellent angiographic result and reduction of stenosis from 90% to 0%. INDICATION: This is a 52-year-old gentleman who sees Dr. Granados in the office as an outpatient who was experiencing chest discomfort and underwent heart catheterization which revealed severe disease involving OM1. The decision was made towards percutaneous coronary intervention. APPROACH: Right common femoral artery. COMPLICATION: None. LEVEL OF SEDATION: Moderate with sedation length of 20 minutes. PROCEDURE DESCRIPTION: Please refer to diagnostic heart catheterization was performed by Dr. Granados. Anticoagulation was achieved with Angiomax. I did engage the left main using XB 3.5 guide. A run-through wire was used to wire the lesion in the OM 1. I did direct stenting using 4.0 x 12 mm Xience CHARISMA where the stent was positioned under fluoroscopy guidance and deployed under 12 atmospheres for 20 seconds with the following angiogram showing excellent angiographic results. The procedure was completed without any complication. POSTPROCEDURE MANAGEMENT: 1. Dual anti-platelet therapy. 2. Risk factors modifications. 3. Follow up with the patient. MMODL / IJN: [id number] /
[2018-08-07] MEDS: LISINOPRIL 20 MG TAB PO SCH (20:44)
[2018-08-07] MEDS: LABETALOL 100 MG TAB PO SCH (20:44)
[2018-08-07 22:36] VITALS: TEMP 98.8
[2018-08-08 06:27] LABS: Basophils % (A) 0 %; Eosinophils # (A) 0.2 k/uL (0-0.7); Eosinophils % (A) 2 %; HCT 43.6 % (39.0-53.0); Lymphocytes # (A) 2.1 k/uL (1.0-4.8); Lymphocytes % (A) 26 %; MCH 32.9 pg (25.0-35.0); MCHC 34.9 g/dL (31.0-37.0); MCV 94.4 fL (80.0-100.0); Mean Platelet Volume 7.2; Monocytes # (A) 0.4 k/uL (0-1.0); Monocytes % (A) 5 %; Neutrophils # (A) 5.1 k/uL (1.3-7.7); Neutrophils % (A) 64 %; Platelet Count 230 k/uL (150-450); RBC 4.62 m/uL (4.30-5.90); RDW 13.7 % (11.5-15.5)
[2018-08-08 06:36] LABS: HGB 15.2 gm/dL (13.0-17.5)
[2018-08-08 06:38] LABS: Anion Gap 5 mmol/L; Blood Urea Nitrogen 14 mg/dL (9-20); Calcium 9.1 mg/dL (8.4-10.2); Carbon Dioxide 31 mmol/L (22-30); Chloride 102 mmol/L (98-107); Glucose 107 mg/dL (74-99); Potassium 4.2 mmol/L (3.5-5.1); Sodium 138 mmol/L (137-145)
[2018-08-08] MEDS: LABETALOL 100 MG TAB PO SCH (08:30)
[2018-08-08] MEDS: LISINOPRIL 20 MG TAB PO SCH (08:30)
[2018-08-08 08:34] VITALS: BP 135/64; PULSE 74; RESP 16
[2018-08-08] MEDS ORDERED: CLOPIDOGREL 75 MG TAB PO SCH (09:00)
[2018-08-08] MEDS ORDERED: ASPIRIN 81 MG PO SCH (09:00)
[2018-08-08] MEDS ORDERED: HYDROCHLOROTHIAZIDE 25 MG TAB PO SCH (09:00)
[2018-08-08] MEDS ORDERED: ISOSORBIDE MONONITRATE ER 30 MG TAB.ER.24H PO SCH (09:00)
[2018-08-08] MEDS ORDERED: NICOTINE 14MG/24HR PATCH TRANSDERM SCH (09:00)
[2018-08-08] MEDS ORDERED: METOPROLOL TARTRATE 12.5 MG TAB PO SCH ×2 (09:00→09:15)
--- NOTE | 2018-08-08 09:00 | P.DS ---
Providers Date of admission: 08/07/2018 Attending physician: Jeramie Granados Consults: 08/07/18 10:44 Consult Physician Routine Consulting Provider: [facility] Consult Reason/Comments: Post Interventional patient Do you want consulting provider notified?: Already Contacted Primary care physician: Grazyna Breen - Discharge Diagnosis(es) (1) CAD (coronary artery disease) Current Visit: Yes Status: Acute (2) S/P coronary artery stent placement Current Visit: Yes Status: Acute (3) Essential hypertension Current Visit: Yes Status: Acute Hospital Course: This patient was brought in for cardiac evaluation because of positive stress test. Patient had a cardiac catheterization and was found to have critical lesion involving the OM branch of the circumflex. Patient had stent placement. Patient has been doing well. The groin is soft without any hematoma. Lungs are clear. Heart is regular. No JVD. No peripheral edema. Patient is being discharged home. Patient will continue nitrates, beta blockers, aspirin and Plavix along with rest of the medication. Patient is advised to add any heavy exertion or pulling or pushing. Follow-up in the office coming Monday. Following that patient will be discharged to go back to work. Plan - Discharge Summary Discharge Rx Participant: Yes New Discharge Prescriptions: New Nitroglycerin Sl Tabs [Nitrostat] 0.4 mg SUBLINGUAL Q5M PRN tab PRN Reason: Chest Pain Clopidogrel [Plavix] 75 mg PO DAILY #90 tab Continue Aspirin 81 mg PO DAILY 30 Days #30 chewable Hydrochlorothiazide [Hydrodiuril] 25 mg PO DAILY 30 Days #30 tab Labetalol [Trandate] 100 mg PO BID 30 Days #60 tab Lisinopril [Zestril] 20 mg PO BID 30 Days #60 tab Nicotine 14Mg/24Hr Patch [Habitrol] 1 patch TRANSDERM DAILY 30 Days #30 patch Isosorbide Mononitrate [Isosorbide Mononitrate ER] 30 mg PO DAILY Nitroglycerin Sl Tabs [Nitrostat] 0.4 mg PO Q5M PRN PRN Reason: Chest Pain Discharge Medication List Aspirin 81 mg PO DAILY 30 Days #30 chewable 07/06/18 [Rx] Hydrochlorothiazide [Hydrodiuril] 25 mg PO DAILY 30 Days #30 tab 07/06/18 [Rx] Labetalol [Trandate] 100 mg PO BID 30 Days #60 tab 03/15/19 [Rx] Lisinopril [Zestril] 20 mg PO BID 30 Days #60 tab 07/06/18 [Rx] Nicotine 14Mg/24Hr Patch [Habitrol] 1 patch TRANSDERM DAILY 30 Days #30 patch 07/06/18 [Rx] Isosorbide Mononitrate [Isosorbide Mononitrate ER] 30 mg PO DAILY 08/02/18 [History] Nitroglycerin Sl Tabs [Nitrostat] 0.4 mg PO Q5M PRN 08/02/18 [History] Clopidogrel [Plavix] 75 mg PO DAILY #90 tab 08/08/18 [Rx] Nitroglycerin Sl Tabs [Nitrostat] 0.4 mg SUBLINGUAL Q5M PRN tab 08/08/18 [Rx] Follow up Appointment(s)/Referral(s): Jeramie Granados MD [STAFF PHYSICIAN] - 08/13/18 2:00 pm (Monday) Patient Instructions/Handouts: Heart Healthy Diet (DC), Coronary Intravascular Stent Placement (DC) Discharge Disposition: HOME SELF-CARE
== END 2018-08-08 10:43 | disposition home or self-care (01) ==
LOC: CATHCVL 07:50 → 3SCARD 10:47 → CATHCVL 08-08 10:43
PROVIDERS: ATTEND Internal Medicine Cardiovascular Disease
DX: I25.10 Atherosclerotic heart disease of native coronary artery without angina pectoris (principal); I10 Essential (primary) hypertension; Z71.6 Tobacco abuse counseling; F17.210 Nicotine dependence, cigarettes, uncomplicated; Z82.49 Family history of ischemic heart disease and other diseases of the circulatory system; Z79.82 Long term (current) use of aspirin; Z79.899 Other long term (current) drug therapy
CPT/HCPCS: 93458; 80048; 85025; C9600; C1760; C1887; C1769 ×3; C1894 ×2; C1874; J2250; J2001; J3010; J0583; Q9967

== ENCOUNTER 2019-07-10 06:18 | Emergency (ER) | payer BC ==
[2019-07-10 06:25] VITALS: TEMP 97.8
[2019-07-10] MEDS ORDERED: IPRATROPIUM-ALBUTEROL 3 ML NEB INHALATION STA ×2 (06:45→07:44)
[2019-07-10] MEDS ORDERED: ALBUTEROL NEBULIZED 2.5 MG/3 ML INHALATION STA (06:46)
[2019-07-10] MEDS ORDERED: LISINOPRIL 20 MG TAB PO STA (06:48)
[2019-07-10] MEDS ORDERED: METOPROLOL TARTRATE 25 MG TAB PO STA (06:48)
--- NOTE | 2019-07-10 07:02 | ED ---
General Adult HPI - General Chief complaint: Shortness of Breath Stated complaint: SOB/Cough/Congestion Time Seen by Provider: 07/10/19 06:26 Source: patient, RN notes reviewed Mode of arrival: ambulatory - History of Present Illness Initial comments: 53-year-old male with a past medical history of hyperlipidemia, hypertension presents to the emergency department for a chief complaint of cough. Patient states he has had a dry cough since this morning. CT disclosing to feel short of breath. Also admits to congestion and runny nose. Patient does not believe he has had fevers. He denies any recent domestic or international travel. Patient does have history of smoking. Patient has no other complaints at this time including chest pain, abdominal pain, nausea or vomiting, headache, or visual changes. - Related Data Home Medications Medication Instructions Recorded Confirmed Isosorbide Mononitrate [Isosorbide 30 mg PO DAILY 08/02/18 07/10/19 Mononitrate ER] Metoprolol Tartrate [Lopressor] 25 mg PO BID 07/10/19 07/10/19 Previous Rx's Medication Instructions Recorded Aspirin 81 mg PO DAILY 30 Days #30 chewable 07/06/18 Lisinopril [Zestril] 20 mg PO BID 30 Days #60 tab 07/06/18 Atorvastatin [Lipitor] 80 mg PO HS #30 tab 08/08/18 Clopidogrel [Plavix] 75 mg PO DAILY #90 tab 08/08/18 Allergies Allergy/AdvReac Type Severity Reaction Status Date / Time No Known Allergies Allergy Verified 07/10/19 08:55 Review of Systems ROS Statement: Those systems with pertinent positive or pertinent negative responses have been documented in the HPI. ROS Other: All systems not noted in ROS Statement are negative. Past Medical History Past Medical History: Hyperlipidemia, Hypertension Additional Past Medical History / Comment(s): recent admission for extremely high BP per pt., see Dr. Granados H & P History of Any Multi-Drug Resistant Organisms: None Reported Past Surgical History: Heart Catheterization With Stent, Tonsillectomy Additional Past Surgical History / Comment(s): TMJ surg., vasectomy stent OM 08-07-18 Past Anesthesia/Blood Transfusion Reactions: No Reported Reaction, Family History of Problems w/ Anesthesia Date of Last Stent Placement:: 08-07-18 Past Psychological History: No Psychological Hx Reported Smoking Status: Former smoker Past Alcohol Use History: Occasional Past Drug Use History: None Reported - Past Family History Father History Unknown: Yes Family Medical History: AICD/Pacemaker Sister(s) Family Medical History: Myocardial Infarction ([place]) Additional Family Medical History / Comment(s): Past bypass sx and stents General Exam General appearance: alert, in no apparent distress Head exam: Present: atraumatic, normocephalic, normal inspection Eye exam: Present: normal appearance, PERRL, EOMI. Absent: scleral icterus, conjunctival injection, periorbital swelling ENT exam: Present: normal exam, mucous membranes moist, TM's normal bilaterally, normal external ear exam. Absent: normal oropharynx (Patient does have erythematous oropharynx however no tonsillar exudates noted bilaterally) Neck exam: Present: normal inspection, full ROM. Absent: tenderness, meningismus, lymphadenopathy Respiratory exam: Present: decreased breath sounds (minimally diminished). Absent: respiratory distress, wheezes, rales, rhonchi, stridor Cardiovascular Exam: Present: regular rate, normal rhythm, normal heart sounds. Absent: systolic murmur, diastolic murmur, rubs, gallop, clicks GI/Abdominal exam: Present: soft, normal bowel sounds. Absent: distended, tenderness, guarding, rebound, rigid Neurological exam: Present: alert Psychiatric exam: Present: normal affect, normal mood Course Vital Signs 07/10/19 07/10/19 07/10/19 06:22 06:49 07:09 Temperature 97.8 F Pulse Rate 84 84 Respiratory 19 Rate Blood Pressure 165/112 151/105 O2 Sat by Pulse 97 Oximetry 07/10/19 07/10/19 07/10/19 07:22 08:00 08:22 Temperature Pulse Rate 88 82 85 Respiratory 18 Rate Blood Pressure 153/96 O2 Sat by Pulse 98 Oximetry 07/10/19 07/10/19 08:35 09:00 Temperature Pulse Rate 86 90 Respiratory 18 Rate Blood Pressure 147/96 O2 Sat by Pulse 98 Oximetry EKG Findings - EKG Comments: EKG Findings:: Normal sinus rhythm, ventricular rate 80, TN interval 164, QTc 472 Medical Decision Making - Medical Decision Making Vitals are stable. Patient does have history of hypertension and did not take his morning medications. Therefore these were given. Patient is complaining of cough and shortness of breath. Cough is noted. He also has a sore throat. CBC CMP unremarkable. Troponin is negative. D-dimer is normal limit. Influenza negative. Strep is negative. Chest x-ray shows no acute cardio pulmonary process. Patient started to complain of worsening status of breath. However at this time he was ambulating and did not appear in distress. Patient did have high anxiety which was likely contributing to his shortness of breath. Patient was given Ativan and symptoms improved significantly. At this time it is not recommended that he is tested for covid19 given no exposure to a documented infectious person or recent testing or foreign travel. However I did recommend patient's of organ for 14 days and follow-up with his doctor after that time. - Lab Data Result diagrams: 07/10/19 07:55 07/10/19 07:55 Lab Results 07/10/19 07/10/19 07/10/19 Range/Units 06:36 07:50 07:55 WBC 10.4 (3.8-10.6) k/uL RBC 5.04 (4.30-5.90) m/uL Hgb 16.3 (13.0-17.5) gm/dL Hct 46.6 (39.0-53.0) % MCV 92.4 (80.0-100.0) fL MCH 32.3 (25.0-35.0) pg MCHC 34.9 (31.0-37.0) g/dL RDW 12.6 (11.5-15.5) % Plt Count 199 (150-450) k/uL Neutrophils % 79 % Lymphocytes % 13 % Monocytes % 5 % Eosinophils % 1 % Basophils % 0 % Neutrophils # 8.3 H (1.3-7.7) k/uL Lymphocytes # 1.4 (1.0-4.8) k/uL Monocytes # 0.6 (0-1.0) k/uL Eosinophils # 0.1 (0-0.7) k/uL Basophils # 0.0 (0-0.2) k/uL PT (9.0-12.0) sec INR (<1.2) APTT (22.0-30.0) sec D-Dimer (<0.60) mg/L FEU Sodium (137-145) mmol/L Potassium (3.5-5.1) mmol/L Chloride (98-107) mmol/L Carbon Dioxide (22-30) mmol/L Anion Gap mmol/L BUN (9-20) mg/dL Creatinine (0.66-1.25) mg/dL Est GFR (CKD-EPI)AfAm (>60 ml/min/1.73 sqM) Est GFR (CKD-EPI)NonAf (>60 ml/min/1.73 sqM) Glucose (74-99) mg/dL Calcium (8.4-10.2) mg/dL Magnesium (1.6-2.3) mg/dL Total Bilirubin (0.2-1.3) mg/dL AST (17-59) U/L ALT (4-49) U/L Alkaline Phosphatase (38-126) U/L Troponin I (0.000-0.034) ng/mL Total Protein (6.3-8.2) g/dL Albumin (3.5-5.0) g/dL Influenza Type A RNA Not Detected (Not Detectd) Influenza Type B (PCR) Not Detected (Not Detectd) Group A Strep Rapid Negative (Negative) 07/10/19 07/10/19 07/10/19 Range/Units 07:55 07:55 07:55 WBC (3.8-10.6) k/uL RBC (4.30-5.90) m/uL Hgb (13.0-17.5) gm/dL Hct (39.0-53.0) % MCV (80.0-100.0) fL MCH (25.0-35.0) pg MCHC (31.0-37.0) g/dL RDW (11.5-15.5) % Plt Count (150-450) k/uL Neutrophils % % Lymphocytes % % Monocytes % % Eosinophils % % Basophils % % Neutrophils # (1.3-7.7) k/uL Lymphocytes # (1.0-4.8) k/uL Monocytes # (0-1.0) k/uL Eosinophils # (0-0.7) k/uL Basophils # (0-0.2) k/uL PT 9.7 (9.0-12.0) sec INR 0.9 (<1.2) APTT 23.5 (22.0-30.0) sec D-Dimer 0.31 (<0.60) mg/L FEU Sodium 139 (137-145) mmol/L Potassium 4.2 (3.5-5.1) mmol/L Chloride 102 (98-107) mmol/L Carbon Dioxide 25 (22-30) mmol/L Anion Gap 12 mmol/L BUN 12 (9-20) mg/dL Creatinine 0.80 (0.66-1.25) mg/dL Est GFR (CKD-EPI)AfAm >90 (>60 ml/min/1.73 sqM) Est GFR (CKD-EPI)NonAf >90 (>60 ml/min/1.73 sqM) Glucose 108 H (74-99) mg/dL Calcium 9.1 (8.4-10.2) mg/dL Magnesium 2.0 (1.6-2.3) mg/dL Total Bilirubin 1.2 (0.2-1.3) mg/dL AST 31 (17-59) U/L ALT 20 (4-49) U/L Alkaline Phosphatase 84 (38-126) U/L Troponin I <0.012 (0.000-0.034) ng/mL Total Protein 7.6 (6.3-8.2) g/dL Albumin 4.8 (3.5-5.0) g/dL Influenza Type A RNA (Not Detectd) Influenza Type B (PCR) (Not Detectd) Group A Strep Rapid (Negative) Disposition Clinical Impression: Cough Disposition: HOME SELF-CARE Condition: Good Instructions (If sedation given, give patient instructions): Acute Cough (ED) Additional Instructions: Use inhaler as needed. Please self quarantined for the next 14 days. Follow-up with primary care after this time or call to discuss make an appointment. Return to the emergency department if you have any worsening symptoms or increased shortness of breath. Is patient prescribed a controlled substance at d/c from ED?: No Referrals: Grazyna Breen MD [Primary Care Provider] - 1-2 days Time of Disposition: 09:13
--- NOTE | 2019-07-10 07:03 | XR ---
EXAMINATION TYPE: XR chest 2V DATE OF EXAM: 07/10/2019 COMPARISON: Chest x-ray July 04, 2018. HISTORY: Difficulty in breathing. TECHNIQUE: Frontal and lateral views of the chest are obtained. FINDINGS: There is no focal air space opacity, pleural effusion, or pneumothorax seen. The cardiac silhouette size remains within normal limits. The osseous structures are intact. IMPRESSION: No acute cardiopulmonary process. No significant change from prior.
[2019-07-10] MEDS ORDERED: ASPIRIN 81 MG PO STA (07:47)
[2019-07-10] MEDS ORDERED: LORazepam 1 MG TAB PO STA (07:47)
[2019-07-10 08:02] VITALS: RESP 18
[2019-07-10 08:33] LABS: ALT 20 U/L (4-49); AST 31 U/L (17-59); African American GFR (CKD) >90 (>60 ml/min/1.73 sqM); Albumin 4.8 g/dL (3.5-5.0); Alkaline Phosphatase 84 U/L (38-126); Anion Gap 12 mmol/L; Blood Urea Nitrogen 12 mg/dL (9-20); Calcium 9.1 mg/dL (8.4-10.2); Carbon Dioxide 25 mmol/L (22-30); Chloride 102 mmol/L (98-107); Glucose 108 mg/dL (74-99); Non-African American GFR(CKD) >90 (>60 ml/min/1.73 sqM); Potassium 4.2 mmol/L (3.5-5.1); Sodium 139 mmol/L (137-145); Total Bilirubin 1.2 mg/dL (0.2-1.3); Total Protein 7.6 g/dL (6.3-8.2)
[2019-07-10 08:42] LABS: D-Dimer 0.31 mg/L FEU (<0.60); INR 0.9 (<1.2); Partial Thromboplastin Time 23.5 sec (22.0-30.0); Prothrombin Time 9.7 sec (9.0-12.0)
[2019-07-10 08:49] LABS: Basophils % (A) 0 %; Eosinophils # (A) 0.1 k/uL (0-0.7); Eosinophils % (A) 1 %; HCT 46.6 % (39.0-53.0); HGB 16.3 gm/dL (13.0-17.5); Lymphocytes # (A) 1.4 k/uL (1.0-4.8); Lymphocytes % (A) 13 %; MCH 32.3 pg (25.0-35.0); MCHC 34.9 g/dL (31.0-37.0); MCV 92.4 fL (80.0-100.0); Monocytes # (A) 0.6 k/uL (0-1.0); Monocytes % (A) 5 %; Neutrophils # (A) 8.3 k/uL (1.3-7.7); Neutrophils % (A) 79 %; Platelet Count 199 k/uL (150-450); RBC 5.04 m/uL (4.30-5.90); RDW 12.6 % (11.5-15.5); WBC 10.4 k/uL (3.8-10.6)
[2019-07-10 09:03] VITALS: BP 147/96; PULSE 90
== END 2019-07-10 09:22 | disposition home or self-care (01) ==
LOC: EC 06:18
DX: R05 Cough (principal); R06.02 Shortness of breath; J02.9 Acute pharyngitis, unspecified; R09.89 Other specified symptoms and signs involving the circulatory and respiratory systems; F41.9 Anxiety disorder, unspecified; I10 Essential (primary) hypertension; Z79.899 Other long term (current) drug therapy; Z95.5 Presence of coronary angioplasty implant and graft; Z87.891 Personal history of nicotine dependence; Z82.49 Family history of ischemic heart disease and other diseases of the circulatory system
CPT/HCPCS: 36415; 71046; 80053; 83735; 84484; 85025; 85379; 85610; 85730; 87081; 87430; 87502; 93005; 94640; 99285

== ENCOUNTER 2021-02-15 10:44 | Emergency (ER) | payer BC ==
[2021-02-15 10:51] VITALS: TEMP 99.3
[2021-02-15] MEDS ORDERED: SODIUM CHLORIDE 0.9% 500 ML 500 ML IV STA ×2 (11:05→12:27)
--- NOTE | 2021-02-15 11:21 | ED ---
General Adult HPI - General Chief complaint: Shortness of Breath Stated complaint: Seizure,Covid+ Time Seen by Provider: 02/15/21 10:45 Source: patient, EMS, RN notes reviewed Mode of arrival: EMS Limitations: no limitations - History of Present Illness Initial comments: 55-year-old male with a past medical history of hyperlipidemia, hypertension presents to the emergency room for a chief complaint of possible seizure. Patient developed coronavirus symptoms on and then tested positive on Monday. Patient reports that he was at home waiting for an infusion. States he did not sleep well. He went to close his eyes and EMS reported he had a seizure. States it lasted about 30 seconds and then he had a minute of being post ictal. Patient feels he was just drowsy and was falling asleep. Patient denies any bladder or bowel incontinence or biting his tongue. Denies any history of seizures.Patient has no other complaints at this time including shortness of breath, chest pain, abdominal pain, nausea or vomiting, headache, or visual changes. - Related Data Home Medications Medication Instructions Recorded Confirmed Isosorbide Mononitrate [Isosorbide 30 mg PO DAILY 08/02/18 07/10/19 Mononitrate ER] Metoprolol Tartrate [Lopressor] 25 mg PO BID 07/10/19 07/10/19 Previous Rx's Medication Instructions Recorded Aspirin 81 mg PO DAILY 30 Days #30 chewable 07/06/18 lisinopriL [Zestril] 20 mg PO BID 30 Days #60 tab 07/06/18 Atorvastatin [Lipitor] 80 mg PO HS #30 tab 08/08/18 Clopidogrel [Plavix] 75 mg PO DAILY #90 tab 08/08/18 Albuterol Inhaler (Mhu) [Ventolin 1 - 2 puff INHALATION Q6HR PRN #1 07/10/19 Hfa Inhaler (Mhu)] inhaler Dexamethasone [Decadron] 6 mg PO DAILY #6 tablet 02/15/21 Allergies Allergy/AdvReac Type Severity Reaction Status Date / Time No Known Allergies Allergy Verified 07/10/19 08:55 Review of Systems ROS Statement: Those systems with pertinent positive or pertinent negative responses have been documented in the HPI. ROS Other: All systems not noted in ROS Statement are negative. Past Medical History Past Medical History: Hyperlipidemia, Hypertension Additional Past Medical History / Comment(s): recent admission for extremely high BP per pt., see Dr. Granados H & P History of Any Multi-Drug Resistant Organisms: None Reported Past Surgical History: Heart Catheterization With Stent, Tonsillectomy Additional Past Surgical History / Comment(s): TMJ surg., vasectomy stent OM 08-07-18 Past Anesthesia/Blood Transfusion Reactions: No Reported Reaction, Family History of Problems w/ Anesthesia Date of Last Stent Placement:: 08-07-18 Past Psychological History: No Psychological Hx Reported Smoking Status: Never smoker Past Alcohol Use History: Occasional Past Drug Use History: None Reported - Past Family History Father History Unknown: Yes Family Medical History: AICD/Pacemaker Sister(s) Family Medical History: Myocardial Infarction ([place]) Additional Family Medical History / Comment(s): Past bypass sx and stents General Exam Limitations: no limitations General appearance: alert, in no apparent distress Head exam: Present: atraumatic Eye exam: Present: normal appearance, PERRL, EOMI. Absent: scleral icterus, conjunctival injection ENT exam: Present: normal exam, mucous membranes moist Neck exam: Present: normal inspection, full ROM. Absent: tenderness Respiratory exam: Present: normal lung sounds bilaterally. Absent: respiratory distress, wheezes Cardiovascular Exam: Present: regular rate, normal rhythm, normal heart sounds Neurological exam: Present: alert, oriented X3 Course Vital Signs 02/15/21 02/15/21 02/15/21 10:44 10:47 13:03 Temperature 99.3 F Pulse Rate 71 74 Respiratory 18 18 Rate Blood Pressure 120/69 110/67 O2 Sat by Pulse 93 L 97 94 L Oximetry Medical Decision Making - Medical Decision Making Vitals are stable. Patient is 93-95% on room air. CBC unremarkable. CMP does show some mild hyponatremia. Chest x-ray does show findings consistent with bilateral patchy peripheral airspace disease. CT brain shows age-related atrophic and chronic small vessel ischemic changes without acute cranial process. Question whether patient had a seizure. He may have had myoclonic rony jahaira with falling asleep. However he will need to follow-up with his doctor outpatient. We did give him monoclonal antibodies. Patient directed to return to the ER for any additional seizures or for any worsening shortness of breath. - Lab Data Result diagrams: 02/15/21 11:19 02/15/21 11:19 Lab Results 02/15/21 02/15/21 Range/Units 11:19 11:19 WBC 3.9 (3.8-10.6) k/uL RBC 4.91 (4.30-5.90) m/uL Hgb 16.4 (13.0-17.5) gm/dL Hct 45.1 (39.0-53.0) % MCV 92.0 (80.0-100.0) fL MCH 33.4 (25.0-35.0) pg MCHC 36.3 (31.0-37.0) g/dL RDW 12.7 (11.5-15.5) % Plt Count 118 L (150-450) k/uL MPV 7.9 Neutrophils % 71 % Lymphocytes % 20 % Monocytes % 7 % Eosinophils % 0 % Basophils % 1 % Neutrophils # 2.7 (1.3-7.7) k/uL Lymphocytes # 0.8 L (1.0-4.8) k/uL Monocytes # 0.3 (0-1.0) k/uL Eosinophils # 0.0 (0-0.7) k/uL Basophils # 0.0 (0-0.2) k/uL Sodium 130 L (137-145) mmol/L Potassium 3.5 (3.5-5.1) mmol/L Chloride 99 (98-107) mmol/L Carbon Dioxide 23 (22-30) mmol/L Anion Gap 8 mmol/L BUN 12 (9-20) mg/dL Creatinine 0.74 (0.66-1.25) mg/dL Est GFR (CKD-EPI)AfAm >90 (>60 ml/min/1.73 sqM) Est GFR (CKD-EPI)NonAf >90 (>60 ml/min/1.73 sqM) Glucose 118 H (74-99) mg/dL Calcium 8.1 L (8.4-10.2) mg/dL Magnesium 1.8 (1.6-2.3) mg/dL Total Bilirubin 1.1 (0.2-1.3) mg/dL AST 75 H (17-59) U/L ALT 53 H (4-49) U/L Alkaline Phosphatase 53 (38-126) U/L Total Protein 6.3 (6.3-8.2) g/dL Albumin 3.6 (3.5-5.0) g/dL Disposition Clinical Impression: COVID, Pneumonia due to COVID-19 virus Narrative: possible seizure Disposition: HOME SELF-CARE Condition: Fair Instructions (If sedation given, give patient instructions): Coronavirus Disease 2019 (COVID-19) Additional Instructions: Please follow up with your doctor in 1-2 days. Return to the ER for any worsening symptoms. Prescriptions: Dexamethasone [Decadron] 6 mg PO DAILY #6 tablet Is patient prescribed a controlled substance at d/c from ED?: No Referrals: Grazyna Breen MD [Primary Care Provider] - 1-2 days Time of Disposition: 13:26
[2021-02-15] MEDS ORDERED: SODIUM CHLORIDE 0.9% 50 ML IVPB ONE (12:00)
[2021-02-15] MEDS ORDERED: CASIRIVIMAB (REGN10933) (EUA) 600 MG, IMDEVIMAB (REGN10987) (EUA) 600 MG in SODIUM CHLO... IVPB ONE (12:00)
[2021-02-15 12:06] LABS: ALT 53 U/L (4-49); African American GFR (CKD) >90 (>60 ml/min/1.73 sqM); Albumin 3.6 g/dL (3.5-5.0); Anion Gap 8 mmol/L; Blood Urea Nitrogen 12 mg/dL (9-20); Calcium 8.1 mg/dL (8.4-10.2); Carbon Dioxide 23 mmol/L (22-30); Chloride 99 mmol/L (98-107); Glucose 118 mg/dL (74-99); Non-African American GFR(CKD) >90 (>60 ml/min/1.73 sqM); Potassium 3.5 mmol/L (3.5-5.1); Sodium 130 mmol/L (137-145); Total Bilirubin 1.1 mg/dL (0.2-1.3); Total Protein 6.3 g/dL (6.3-8.2)
[2021-02-15 12:07] LABS: AST 75 U/L (17-59); Alkaline Phosphatase 53 U/L (38-126); Magnesium 1.8 mg/dL (1.6-2.3)
--- NOTE | 2021-02-15 12:13 | CT ---
EXAMINATION TYPE: CT brain wo con DATE OF EXAM: 02/15/2021 COMPARISON: None HISTORY: seizure CT DLP: 1099.[address] of the brain was performed. The ventricles, basal cisterns and sulci overlying the cerebral convexities demonstrate mild enlargem ent. There is no evidence for intracranial hemorrhage or sulcal effacement. There is decreased attenuation about the periventricular white matter and deep white matter of both c erebral hemispheres, compatible with chronic small vessel ischemia. Differential diagnosis does inclu de demyelination. No mass effects are seen.No midline shift. Osseous calvarium is intact. Chronic paranasal sinusitis. If symptoms persist consider MRI. IMPRESSION: 1. Age related atrophic and chronic small vessel ischemic change without acute intracranial process s een at this time.
--- NOTE | 2021-02-15 12:23 | XR ---
EXAMINATION TYPE: XR chest 2V DATE OF EXAM: 02/15/2021 COMPARISON: Chest x-ray 07/10/2019 HISTORY: Covid and shortness of breath TECHNIQUE: Frontal and lateral views of the chest are obtained. FINDINGS: Bilateral patchy peripheral airspace disease is noted. No evident pneumothorax or pleural effusion. Cardiac mediastinal silhouette is stable. Bones are unchanged. IMPRESSION: Findings consistent with pneumonia and patient's history
[2021-02-15 12:30] LABS: Basophils % (A) 1 %; Eosinophils % (A) 0 %; HCT 45.1 % (39.0-53.0); HGB 16.4 gm/dL (13.0-17.5); Lymphocytes # (A) 0.8 k/uL (1.0-4.8); Lymphocytes % (A) 20 %; MCH 33.4 pg (25.0-35.0); MCHC 36.3 g/dL (31.0-37.0); Mean Platelet Volume 7.9; Monocytes # (A) 0.3 k/uL (0-1.0); Monocytes % (A) 7 %; Neutrophils # (A) 2.7 k/uL (1.3-7.7); Neutrophils % (A) 71 %; Platelet Count 118 k/uL (150-450); RBC 4.91 m/uL (4.30-5.90); RDW 12.7 % (11.5-15.5); WBC 3.9 k/uL (3.8-10.6)
[2021-02-15] MEDS ORDERED: DEXAMETHASONE SOD PHOSPHATE 10 MG/ML 1 ML VIAL IVP STA (13:47)
[2021-02-15 14:37] VITALS: BP 130/79; PULSE 63; RESP 16
== END 2021-02-15 14:59 | disposition home or self-care (01) ==
LOC: EC 10:44
DX: U07.1 COVID-19 (principal); J12.82 Pneumonia due to coronavirus disease 2019; I10 Essential (primary) hypertension; E78.5 Hyperlipidemia, unspecified; Z79.82 Long term (current) use of aspirin; Z79.51 Long term (current) use of inhaled steroids; Z79.52 Long term (current) use of systemic steroids; Z79.899 Other long term (current) drug therapy
CPT/HCPCS: 36415; 80053; 83735; 85025; 71046; 70450; 99285; 96365; 96375; 96361 ×3; J1100

== ENCOUNTER → 2021-03-09 | Outpatient (CLI) | payer BC ==
--- NOTE | 2021-03-11 03:08 | CT ---
EXAMINATION TYPE: CT angio chest DATE OF EXAM: 03/09/2021 7:11 PM COMPARISON: 02/15/2021 chest radiograph HISTORY: SOB CT DLP: 837 mGycm Automated exposure control for dose reduction was used. CONTRAST: CTA scan of the thorax is performed with IV Contrast, patient injected with 78cc mL of Isovue 370, pu lmonary embolism protocol. . FINDINGS: LUNGS: There are mild scattered groundglass opacities of the bilateral lungs, with improved aeration versus 02/15/2021. There is no pleural effusion or pneumothorax seen. The tracheobronchial tree is p atent. CARDIOVASCULAR: There is suboptimal enhancement of the pulmonary artery and its branches, nondiagnost ic for assessment of pulmonary embolism. The contrast bolus is primarily within the thoracic aorta a nd pulmonary veins. There is no thoracic aortic aneurysm or dissection. The cardiac size is normal, h owever there may be relative left atrial and ventricular enlargement. There is prominent left ventric le wall thickness and suggestion of narrowed left ventricular outflow tract or the aorta. No pericard ial effusion is seen. MEDIASTINAL/SOFT TISSUES no axillary or hilar lymphadenopathy. Prominent mediastinal lymph nodes may be reactive. UPPER ABDOMEN normal adrenal glands. MUSCULOSKELETAL: No acute osseous abnormality. IMPRESSION: 1. Relative prominence of the left atrium and left ventricle. Thickened appearance of the left ventri roly wall and likely narrowing of the left ventricular outflow tract towards the aorta. Differential i ncludes hypertrophic obstructive cardiomyopathy (HOCM). Recommend cardiology consultation and correla tion with echocardiogram. 2. Mild scattered groundglass opacities likely represent resolving Covid 19 pneumonia. There is impro mckenzie aeration of the lungs versus 02/15/2021. 3. Contrast bolus is nondiagnostic for assessment of pulmonary embolism. No thoracic aortic aneurysm or dissection.
== END | disposition home or self-care (01) ==
LOC: RADCTMAIN 18:37
PROVIDERS: ATTEND Internal Medicine Critical Care Medicine
DX: R91.8 Other nonspecific abnormal finding of lung field (principal)
CPT/HCPCS: 71275; Q9967

== ENCOUNTER 2021-03-31 09:42 | Day surgery (SDC) | payer BC ==
[2021-03-29 09:52] VITALS: BMI 39.5
[~2021-03-31 09:42] MED LIST changes: -ALPRAZolam 0.25 MG TAB PO PRN; -ASPIRIN 325 MG TAB PO ONE; +LIDOCAINE 1% (10MG/ML) FOR IV START INTRADERMA PRN; -NITROGLYCERIN SL TABS 0.4 MG TAB SUBLINGUAL PRN; -SODIUM CHLORIDE 0.9% 1,000 ML in EMPTY BAG 1 BAG IV ONE
[2021-03-31 10:31] VITALS: TEMP 98.2
[2021-03-31] MEDS: LACTATED RINGERS 1,000 ML IV SCH ×2 (10:34→11:12)
[2021-03-31] MEDS ORDERED: PROPOFOL 10 MG/ML 50 ML VIAL IV ONE (11:12)
--- NOTE | 2021-03-31 11:33 | P.PCN ---
Date of Procedure: 03/31/21 Procedure(s) Performed: BRIEF HISTORY: Patient is a 55-year-old pleasant white male scheduled for an elective colonoscopy as a part of screening for colon rectal neoplasia. PROCEDURE PERFORMED: Colonoscopy with snare polypectomy. PREOPERATIVE DIAGNOSIS: Screening for colon cancer. IV sedation per Anesthesia. PROCEDURE: After informed consent was obtained, the patient, was brought into the endoscopy unit. IV sedation was administered by Anesthesia under continuous monitoring. Digital rectal examination was normal. Initially the Olympus CF-160 flexible video colonoscope was then inserted in the rectum, gradually advanced into the cecum without any difficulty. Careful examination was performed as the scope was gradually being withdrawn. Ileocecal valve and the appendiceal orifice were visualized and appeared normal. Prep was excellent. Mucosa of the cecum, ascending colon, transverse colon, appeared normal. In the descending colon there was a 5 mm sessile polyp removed by snare polypectomy. Rest of the descending colon, sigmoid colon, and rectum appeared normal. Retroflexion was performed in the rectum and no lesions were seen. The patient tolerated the procedure well. IMPRESSION: 5 mm sessile descending colon polyp status post polypectomy Rest of the colon appeared normal RECOMMENDATIONS: Findings of this examination were discussed with the patient as well as his family. He was advised to follow with the biopsy results. If the biopsy reveals adenoma he can have a repeat colonoscopy in 5 years.
[2021-03-31 11:38] VITALS: PULSE 77; RESP 16
[2021-03-31 11:52] VITALS: BP 148/90
== END 2021-03-31 12:10 | disposition home or self-care (01) ==
LOC: ORWHC2ENDO 09:42
PROVIDERS: ATTEND Internal Medicine Gastroenterology
DX: Z12.11 Encounter for screening for malignant neoplasm of colon (principal); K63.5 Polyp of colon; I25.10 Atherosclerotic heart disease of native coronary artery without angina pectoris; I10 Essential (primary) hypertension; E78.5 Hyperlipidemia, unspecified; Z87.891 Personal history of nicotine dependence; Z86.11 Personal history of tuberculosis; Z79.899 Other long term (current) drug therapy; Z79.02 Long term (current) use of antithrombotics/antiplatelets
CPT/HCPCS: 88305; 45385; J2704

== ENCOUNTER → 2023-04-06 | Outpatient (CLI) | payer BC ==
--- NOTE | 2023-04-07 08:04 | XR ---
EXAMINATION TYPE: XR Hip Complete RT DATE OF EXAM: 04/06/2023 4:16 PM CLINICAL INDICATION:Male, 57 years old with history of M25.551; [facility] COMPARISON: None. TECHNIQUE: XR Hip Complete RT; hip was examined in the frontal and lateral projections and a AP pelvi s. FINDINGS: No evidence for acute process, joint dislocation or significant soft tissue swelling. Osteo phyte formation of the superior acetabulum of the hip. IMPRESSION: 1. No evidence for acute process. 2. Mild hip osteoarthrosis.
== END | disposition home or self-care (01) ==
LOC: RADXRMAIN 15:56
PROVIDERS: ATTEND Nurse Practitioner Family
DX: M16.11 Unilateral primary osteoarthritis, right hip (principal)
CPT/HCPCS: 73502

== ENCOUNTER → 2023-08-03 | Outpatient (CLI) | payer BC ==
[2023-08-03 13:21] LABS: Partial Thromboplastin Time 24.8 sec (22.0-30.0)
[2023-08-03 15:53] LABS: ALT 13 U/L (10-49); AST 21 U/L (14-35); Albumin 4.3 g/dL (3.8-4.9); Albumin/Globulin Ratio 1.79 Ratio (1.60-3.17); Alkaline Phosphatase 109 U/L (41-126); BUN/Creat Ratio 23.88 Ratio (12.00-20.00); Blood Urea Nitrogen 19.1 mg/dL (9.0-27.0); Calcium 9.2 mg/dL (8.7-10.3); Carbon Dioxide 25.4 mmol/L (21.6-31.8); Chloride 102 mmol/L (96-109); Globulin 2.4 g/dL (1.6-3.3); Glucose 103 mg/dL (70-110); Potassium 4.3 mmol/L (3.5-5.5); Sodium 138 mmol/L (135-145); Total Protein 6.7 g/dL (6.2-8.2)
[2023-08-03 16:00] LABS: HGB 14.7 g/dL (13.0-17.0); MCH 31.7 pg (27.0-32.0); MCV 90.7 FL (80.0-97.0); Mean Platelet Volume 9.5 FL (9.5-12.2); NRBC Per 100 WBC 0 X 10*3/uL (0.00-0.01); Platelet Count 219 X 10*3/uL (140-440); RBC 4.63 X 10*6/uL (4.40-5.60); RDW 12.9 % (11.5-14.5); WBC 6.63 X 10*3/uL (4.50-10.00)
[2023-08-04 00:46] LABS: Prothrombin Time 10.7 sec (10.0-12.5)
== END | disposition home or self-care (01) ==
LOC: LABPAT 12:28
PROVIDERS: ATTEND Orthopaedic Surgery
DX: Z01.812 Encounter for preprocedural laboratory examination (principal); Z22.322 Carrier or suspected carrier of Methicillin resistant Staphylococcus aureus; M16.11 Unilateral primary osteoarthritis, right hip
CPT/HCPCS: 36415; 80053; 85027; 85610; 85730; 86850; 86900; 86901; 87070

== ENCOUNTER 2023-08-08 09:34 | Day surgery (SDC) | payer BC ==
[2023-08-03 15:03] VITALS: BMI 38.2
[~2023-08-08 09:34] MED LIST changes: +HYDROmorphone 0.5 MG/0.5 ML SYRINGE IVP PRN; +MIDAZOLAM 2 MG/2 ML VIAL IV PRN; +TRANEXAMIC 1,000 MG/100ML-NACL 1,000 MG in SALINE 1 100ML.BAG IVPB PRN
[2023-08-08] MEDS: MELOXICAM 7.5 MG TAB PO PRN (10:02)
[2023-08-08] MEDS: GABAPENTIN 300 MG CAP PO PRN (10:02)
[2023-08-08] MEDS: LACTATED RINGERS 1,000 ML IV SCH (10:02)
[2023-08-08] MEDS: ACETAMINOPHEN TAB 500 MG TAB PO PRN (10:02)
[2023-08-08] MEDS: DEXAMETHASONE SOD PHOSPHATE 4 MG/ML 1 ML VIAL IV ONE (10:24)
[2023-08-08] MEDS: ONDANSETRON 4 MG/2 ML VIAL IVP ONE (10:24)
[2023-08-08] MEDS: MIDAZOLAM 2 MG/2 ML VIAL IVP ONE (10:31)
[2023-08-08 10:33] LABS: Glucose,Whole Blood 80 mg/dL (70-110)
--- NOTE | 2023-08-08 10:49 | P.ANPRN ---
Procedure Note - Anesthesia - Nerve Block Performed Right Bautista Single Date of Procedure: 08/08/23 Procedure Start Time: 10:31 Procedure Stop Time: 10:41 Indication: Acute Post-Operative Pain, Requested by Surgeon Sedation Type: Sedate with meaningful contact maintained Preparation: Sterile Prep Position: Supine Needle Gauge: 21 Ultrasound used to visualize needle placement: Yes Ultrasound used to observe medication spread: Yes Injectate: 0.5% Ropivacaine (see comment for volume) (20 mls with 4 mg Decadron) Blood Aspirated: No Pain Paresthesia on Injection Noted: No Resistance on Injection: Normal Image Stored and Saved: Yes Events: Uneventful and Well Tolerated
[2023-08-08] MEDS ORDERED: fentaNYL (PF) 50 MCG/ML 2 ML AMP ONE (11:40)
[2023-08-08] MEDS ORDERED: DEXAMETHASONE SOD PHOSPHATE 4 MG/ML 1 ML VIAL ONE (11:40)
[2023-08-08] MEDS ORDERED: MIDAZOLAM 2 MG/2 ML VIAL ONE (11:40)
[2023-08-08] MEDS ORDERED: ePHEDrine 50 MG/ML 1 ML VIAL ONE (11:40)
[2023-08-08] MEDS ORDERED: PROPOFOL 10 MG/ML 20 ML VIAL IV ONE (11:40)
[2023-08-08] MEDS ORDERED: ROPIVACAINE 5 MG/ML 30 ML VIAL ONE (11:40)
[2023-08-08] MEDS ORDERED: SODIUM CHLORIDE 0.9% (PF) 10 ML VIAL ONE (11:40)
[2023-08-08] MEDS ORDERED: KETAMINE HCL IN 0.9 % NACL 50 MG/5 ML SYRINGE ONE (11:40)
[2023-08-08] MEDS: ROPIVACAINE 5 MG/ML 30 ML VIAL MISCELLANE ONE ×2 (11:43→13:01)
[2023-08-08] MEDS: ceFAZolin 3 GM in SODIUM CHLORIDE 0.9% 100 ML IVPB PRN (11:45)
[2023-08-08] MEDS: ceFAZolin 1,000 MG in SODIUM CHLORIDE 0.9% 1,000 ML IRRIGATION ONE (11:47)
[2023-08-08] MEDS: LACTATED RINGERS 1,000 ML IV ONE ×2 (13:12→13:26)
--- NOTE | 2023-08-08 13:19 | P.OP ---
Date of Procedure: 08/08/23 Preoperative Diagnosis: Avascular necrosis right hip Postoperative Diagnosis: Avascular necrosis right hip Procedure(s) Performed: right total hip arthroplasty with a direct anterior approach Implants: [employer] Polarstem standard size 7 with a collar [employer] R3, 3 hole hemispherical acetabular shell, 54 mm [employer] Reflection 6.5 mm cancellus screw, 20 mm 2 [employer] R3, XLPE 20 acetabular liner [employer] Oxinium femoral head 36 mm, +4 All components were press-fit. The articulation is Oxinium on polyethylene. Anesthesia: spinal Surgeon: Daniel Novoa Risk Modeler #1: Hamlet Angel Estimated Blood Loss (ml): 400 Pathology: none sent Condition: stable Disposition: PACU Indications for Procedure: After failure of conservative treatment we discussed the surgical and nonsurgical treatment options at length. Patient wishes to proceed with a total hip arthroplasty with a direct anterior approach. Complications specific to this procedure were discussed at length, including but not limited to infection, leg length discrepancy, dislocation, nerve injury, and fracture. Covid-19 was also discussed at length with the patient, and they are aware of the current policies and procedures. The patient was given the option of delaying surgery, but they elect to proceed knowing these risks. Patient is aware of all these complications and informed consent was obtained Operative Findings: the operative findings are consistent with avascular necrosis of the right hip with femoral collapse Description of Procedure: The patient was seen and evaluated in the preoperative area and the consent was reviewed. The operative site was marked with a skin marker. The patient verified the procedure and operative site. A HADLEY block was placed by anesthesia in the preoperative area. The patient was then brought to the operating room and given preoperative antibiotics intravenously. 1 g of Tranexamic acid was also given intravenously. A spinal anesthetic was administered by the anesthesia department. The patient was then placed on the Leota table with the bony prominences well-padded. The hip area was then prepped with a ChloraPrep solution and draped in the usual sterile fashion. A universal timeout was then performed, which confirmed the patient's name, surgical site, ALLERGIES, and procedure being performed on the consent. Next the incision site was located at 1 cm distal and 4 cm lateral to the anterior superior iliac spine. The skin and subcutaneous tissues were sharply incised. Incision was carefully dissected down to the fascia overlying the tensor fascia shandra muscle. This fascia was then incised in line with the muscle fibers. Care was taken to stay laterally in order to avoid injuring the lateral femoral cutaneous nerve. Next, using blunt finger dissection, the tensor fascia shandra muscle was dissected off its investing fascia. The muscle was then carefully retracted laterally with a cobra retractor over the lateral neck of the femur. Next, the circumflex vessels were identified and cauterized using the Aquamantis device. The anterior hip capsule was then exposed. The capsule was then opened and an inverted T fashion. The retractors were then placed intracapsularly. The retractors were maintained intracapsular throughout the procedure. The proximal femur was then visualized. Fluoroscopic x-rays were then taken in order to evaluate the preoperative leg lengths. A small amount of traction was placed on the leg. The femoral neck was then osteotomized at the appropriate level above the lesser trochanter. A small wedge of bone was then removed from the remaining femoral head. Next, using a corkscrew the femoral head was removed from the acetabulum. On gross visual inspection, the femoral head had significant femoral collapse from avascular necrosis. The femoral head was then measured. Attention was then turned to the acetabulum. The acetabulum was exposed and any remaining labrum was excised. Sequential reaming of the acetabulum was performed using fluoroscopic guidance until there was a good bed of bleeding cancellus bone. When the appropriate size was r eached, a trial was then placed. The position and fit of the trial was checked with fluoroscopy. The trial was then removed. Then, using fluoroscopic guidance, the final implant was impacted at 20 of anteversion and 40 of abduction, and fully seated in the acetabulum. 2 screws were then placed in the acetabulum. Again fluoroscopy was used to check position of the screws. Next, the liner was then impacted, with a 20 elevated liner located in the anterior superior quadrant. Component locking was confirmed. Attention was then directed to the femur. With the aid of the Leota table, the femur was externally rotated to approximately 130, extended, and adducted under the opposite leg. A side hook was then placed under the proximal femur, and the side hook elevator was used to elevate the proximal femur while releasing the capsule. Retractors were then placed. A capsular release was performed, as well as a release of the conjoined tendon, which afforded excellent visualization of the proximal femur. Next, a box osteotome was used to lateralize the proximal femur. A product merchandiser was then used to locate the femoral canal. Sequential broaching was then performed with appropriate size which afforded excellent fixation in the proximal femur. A trial was then placed with appropriate head and neck, and the hip was gently reduced with the aid of the Leota table. Fluoroscopy was then used to check position of the components, as well as to evaluate the leg lengths and offset. The leg lengths and offset were measured as closely as possible to ensure stability of the hip. The hip was then gently dislocated and the trials were then removed. Final implants were then impacted and the hip was again reduced. Final fluoroscopic x-rays confirmed that the components were in anatomic position. The leg lengths and offset were measured and were found to coincide with the trial measurements. The hip was also taken through range of motion, and found to be stable. The hip was then copiously irrigated with antibiotic solution with pulsatile lavage. The hip was then irrigated with Irrisept solution. The soft tissues were then injected with a ropivacaine solution. A second dose of 1 g of Tranexamic acid was also given intravenously. The fascia was then closed with 2-0 strata fix suture. The subcutaneous tissue was closed with 3-0 Vicryl. The subcuticular tissue was closed with 3-0 strata fix suture. The skin was then closed with Exofin skin glue. After the glue and dried, and Optifoam silver impregnated dressing was applied. The patient was then transferred to the recovery room in stable condition. The help desk assistant KAROLINA Marsh was required due to the complexity of surgery, and the need for skilled advertising sales assistant for positioning, draping, exposure, retraction, and closure of the wound.
[2023-08-08] MEDS ORDERED: NALOXONE 0.4 MG/ML 1 ML VIAL IV PRN (13:39)
[2023-08-08] MEDS ORDERED: HYDROcodone/APAP 5-325MG 1 EACH TAB PO PRN (13:40)
[2023-08-08] MEDS ORDERED: ONDANSETRON 4 MG/2 ML VIAL IVP PRN (13:40)
[2023-08-08] MEDS ORDERED: HYDROmorphone 0.5 MG/0.5 ML SYRINGE IVP PRN ×2 (13:40)
[2023-08-08] MEDS ORDERED: MAGNESIUM HYDROXIDE 2,400 MG/30 ML CUP PO PRN (13:40)
--- NOTE | 2023-08-08 13:44 | FL ---
EXAMINATION TYPE: FL guidance operating room, XR Hip Limited RT Intraoperative/procedural fluoroscopi c services were provided. Total fluoroscopy time is 40 seconds with a total of 3 submitted images to PACS. Please see the operative/procedural note for further details. DAP: 3.5033 Gycm2
--- NOTE | 2023-08-08 14:38 | XR ---
EXAMINATION TYPE: XR Hip Limited RT DATE OF EXAM: 08/08/2023 2:11 PM CLINICAL INDICATION:Male, 57 years old with history of Status post hip surgery, assess surgical align ment; [facility] COMPARISON: None. TECHNIQUE: XR Hip Limited RT; hip was examined in the frontal projections FINDINGS: Post arthroplasty changes, hardware is intact, alignment is appropriate. No evidence of fra cture. Postoperative changes of the soft tissues with subcutaneous gas. No evidence of any acute osse ous pathology or joint dislocation. IMPRESSION: Hip arthroplasty with hardware intact and in appropriate alignment. No acute fracture.
[2023-08-08] MEDS: HYDROcodone/APAP 5-325MG 1 EACH TAB PO PRN (15:53)
[2023-08-08 16:20] LABS: Glucose,Whole Blood 148 mg/dL (70-110)
[2023-08-08] MEDS: HYDROmorphone 1 MG/ML 1 ML SYRINGE IVP PRN (17:11)
[2023-08-08 20:29] LABS: Glucose,Whole Blood 183 mg/dL (70-110)
[2023-08-08] MEDS: ceFAZolin 3 GM in SODIUM CHLORIDE 0.9% 100 ML IVPB SCH (20:30)
[2023-08-08] MEDS: PROPRANOLOL LA 60 MG CAP.SA.24H PO SCH (20:31)
[2023-08-08] MEDS: VERAPAMIL SR 120 MG TABLET.ER PO SCH (20:31)
[2023-08-08] MEDS: ISOSORBIDE MONONITRATE ER 60 MG TAB.ER.24H PO SCH (20:32)
[2023-08-08] MEDS: SENNOSIDES-DOCUSATE SODIUM 1 EACH TAB PO SCH (20:32)
[2023-08-08] MEDS: traMADol 50 MG TAB PO SCH (20:32)
[2023-08-08] MEDS: ATORVASTATIN 80 MG TAB PO SCH (20:32)
[2023-08-08] MEDS: SODIUM CHLORIDE 0.9% 1,000 ML IV SCH (20:33)
[2023-08-09 06:10] LABS: Glucose,Whole Blood 156 mg/dL (70-110)
[2023-08-09 07:39] VITALS: BP 122/64; PULSE 69; RESP 18; TEMP 97.5
[2023-08-09] MEDS: lisinopriL 20 MG TAB PO SCH (08:12)
[2023-08-09] MEDS: CLOPIDOGREL 75 MG TAB PO SCH (08:12)
[2023-08-09] MEDS: ASPIRIN 81 MG PO SCH (08:12)
[2023-08-09] MEDS: FAMOTIDINE 20 MG TAB PO SCH (08:12)
[2023-08-09] MEDS: PANTOPRAZOLE 40 MG TABLET PO SCH (08:16)
[2023-08-09 08:56] LABS: Basophils # (A) 0.01 X 10*3/uL (0.00-0.10); Basophils % (A) 0.1 %; Eosinophils # (A) 0 X 10*3/uL (0.04-0.35); Eosinophils % (A) 0 %; HGB 12.9 g/dL (13.0-17.0); Lymphocytes # (A) 1.23 X 10*3/uL (0.90-5.00); Lymphocytes % (A) 8.6 %; MCH 31.1 pg (27.0-32.0); MCHC 33.1 g/dL (32.0-37.0); Mean Platelet Volume 9.9 FL (9.5-12.2); Monocytes # (A) 1.19 X 10*3/uL (0.20-1.00); Monocytes % (A) 8.3 %; NRBC Per 100 WBC 0 X 10*3/uL (0.00-0.01); Neutrophils # (A) 11.87 X 10*3/uL (1.80-7.70); Neutrophils % (A) 82.4 %; Platelet Count 263 X 10*3/uL (140-440); RBC 4.15 X 10*6/uL (4.40-5.60); RDW 12.8 % (11.5-14.5); WBC 14.38 X 10*3/uL (4.50-10.00)
[2023-08-09] MEDS ORDERED: ASPIRIN 81 MG PO SCH (09:00)
[2023-08-09 09:18] LABS: BUN/Creat Ratio 18.78 Ratio (12.00-20.00); Blood Urea Nitrogen 16.9 mg/dL (9.0-27.0); Chloride 99 mmol/L (96-109); Glucose 149 mg/dL (70-110); Potassium 4.8 mmol/L (3.5-5.5); Sodium 136 mmol/L (135-145)
[2023-08-09 09:19] LABS: ALT 13 U/L (10-49); AST 24 U/L (14-35); Albumin 3.7 g/dL (3.8-4.9); Albumin/Globulin Ratio 1.85 Ratio (1.60-3.17); Alkaline Phosphatase 98 U/L (41-126); Calcium 8.7 mg/dL (8.7-10.3); Total Bilirubin 0.8 mg/dL (0.3-1.2); Total Protein 5.7 g/dL (6.2-8.2)
--- NOTE | 2023-08-09 09:31 | P.DS ---
Providers Expected date of discharge: 08/09/23 Attending physician: Daniel Novoa Consults: 08/08/23 13:40 Consult Physician Stat Consulting Provider: Ashwini Au Consult Reason/Comments: postoperative medical management Do you want consulting provider notified?: Yes Primary care physician: Grazyna Breen - Discharge Diagnosis(es) (1) Primary localized osteoarthritis of right hip Current Visit: Yes Status: Acute (2) Status post total replacement of right hip Current Visit: Yes Status: Acute Hospital Course: This is a 57-year-old male with known history of degenerative arthritis of the right hip. The patient presents for evaluation. After discussion and consideration patient elects to proceed with total hip arthroplasty with direct anterior approach. The patient is seen preoperatively by primary care physician and cleared for surgery. Patient is admitted to [facility] on 08/08/2023 for total hip arthroplasty with direct anterior approach. The procedure is performed without complication or sequelae. The patient is doing well postoperatively. Labs and vital signs are stable on day of discharge. On day of discharge patient's hip incision is healing well. There is minimal erythema. There is no drainage noted at this time. There is minimal soft tissue swelling to the hip and thigh. Patient has full foot and ankle motion without difficulty or pain. Neurovascular status to the lower extremity is intact. Patient is discharged to home in good condition. Please see med rec for accurate list of home medications. Plan - Discharge Summary Discharge Rx Participant: Yes New Discharge Prescriptions: New Aspirin 81 mg PO BID #60 tab HYDROcodone/APAP 7.5-325MG [[place] 7.5-325] 1 each PO Q6HR PRN #28 tab PRN Reason: Pain Sennosides-Docusate Sodium [Senokot-S] 1 tab PO BID PRN #60 tablet PRN Reason: Constipation Ondansetron [Zofran] 4 mg PO Q6HR PRN #30 tab PRN Reason: Nausea Baclofen 10 mg PO Q8H PRN #30 tab PRN Reason: Spasms No Action Atorvastatin [Lipitor] 80 mg PO HS #30 tab Clopidogrel [Plavix] 75 mg PO QAM Aspirin 81 mg PO QAM lisinopriL 40 mg PO QAM Propranolol HCl [Propranolol HCl ER] 120 mg PO HS Verapamil Sr [Isoptin Sr] 120 mg PO HS Ibuprofen [Motrin Ib] 200 mg PO Q8H PRN PRN Reason: Pain traMADol HCL 50 mg PO HS Tirzepatide [Mounjaro] 2.5 mg SQ MO Isosorbide Mononitrate [Isosorbide Mononitrate ER] 60 mg PO HS Omeprazole 40 mg PO QAM Discharge Medication List Atorvastatin [Lipitor] 80 mg PO HS #30 tab 08/08/18 [Rx] Aspirin 81 mg PO QAM 08/03/23 [History] Clopidogrel [Plavix] 75 mg PO QAM 08/03/23 [History] Ibuprofen [Motrin Ib] 200 mg PO Q8H PRN 08/03/23 [History] Isosorbide Mononitrate [Isosorbide Mononitrate ER] 60 mg PO HS 08/03/23 [History] Omeprazole 40 mg PO QAM 08/03/23 [History] Propranolol HCl [Propranolol HCl ER] 120 mg PO HS 08/03/23 [History] Tirzepatide [Mounjaro] 2.5 mg SQ MO 08/03/23 [History] Verapamil Sr [Isoptin Sr] 120 mg PO HS 08/03/23 [History] lisinopriL 40 mg PO QAM 08/03/23 [History] traMADol HCL 50 mg PO HS 08/03/23 [History] Aspirin 81 mg PO BID #60 tab 08/08/23 [Rx] HYDROcodone/APAP 7.5-325MG [[place] 7.5-325] 1 each PO Q6HR PRN #28 tab 08/08/23 [Rx] Ondansetron [Zofran] 4 mg PO Q6HR PRN #30 tab 08/08/23 [Rx] Sennosides-Docusate Sodium [Senokot-S] 1 tab PO BID PRN #60 tablet 08/08/23 [Rx] Baclofen 10 mg PO Q8H PRN #30 tab 08/09/23 [Rx] Follow up Appointment(s)/Referral(s): Daniel Novoa DO [Doctor of Osteopathic Medicine] - 2 Weeks (Patient may follow-up with Christa Grasyon PA-C or Dr. Daniel Novoa at [facility] in 2-3 weeks following discharge. ) Activity/Diet/Wound Care/Special Instructions: 1. Keep Optifoam dressing over the right hip intact over the next 7 days 2. Patient may shower with dressing intact over the surgical site of the right hip 3. Patient may shower without a dressing intact after 7 days his incision site remains clean and dry 4. Weight-bear as tolerated right lower extremity with a walker 5. Take medications as prescribed 6. Any questions or concerns patient may contact [facility] at [phone] Discharge Disposition: HOME SELF-CARE
[2023-08-09 11:22] LABS: Glucose,Whole Blood 138 mg/dL (70-110)
--- NOTE | 2023-08-09 11:46 | P.CONS ---
History of Present Illness - Reason for Consult Consult date: 08/08/23 - History of Present Illness this is a 57-year-old male patient of Dr. Breen who presented to the hospital for an elective right hip arthroplasty with Dr. weston on 08/08/2023. Patient has past medical history of CAD, diabetes mellitus, hyperlipidemia, hypertension, sleep apnea, previous heart cath with stents and ex-smoker. At this time patient is resting comfortably in bed. home medications resumed. Repeat labs for a.m. she denies chest pain or shortness breath. Patient denies nausea vomiting or diarrhea. Patient denies any urinary burning or frequency Review of Systems please refer toHPI otherwise unremarkable Past Medical History Past Medical History: Coronary Artery Disease (CAD), Diabetes Mellitus, Hyperlipidemia, Hypertension, Musculoskeletal Disorder, Sleep Apnea/CPAP/BIPAP Additional Past Medical History / Comment(s): DDD. BIPAP use. History of Any Multi-Drug Resistant Organisms: None Reported Past Surgical History: Heart Catheterization With Stent, Orthopedic Surgery, Tonsillectomy Additional Past Surgical History / Comment(s): TMJ surgery, vasectomy, cyst removal from left index finger. right hip replacement Past Anesthesia/Blood Transfusion Reactions: No Reported Reaction Additional Past Anesthesia/Blood Transfusion Reaction / Comm: FATHER-DIFFICULTY WAKING UP. Date of Last Stent Placement:: 08-07-18 Past Psychological History: No Psychological Hx Reported Smoking Status: Former smoker Past Alcohol Use History: Occasional Additional Past Alcohol Use History / Comment(s): QUIT SMOKING 3-4 YEARS AGO. HX OF 1PPD. Past Drug Use History: None Reported - Past Family History Father History Unknown: Yes Family Medical History: AICD/Pacemaker Sister(s) Family Medical History: Myocardial Infarction ([place]) Additional Family Medical History / Comment(s): Past bypass sx and stents. Medications and Allergies Home Medications Medication Instructions Recorded Confirmed Type Atorvastatin [Lipitor] 80 mg PO HS #30 tab 08/08/18 08/08/23 Rx Aspirin 81 mg PO QAM 08/03/23 08/08/23 History Clopidogrel [Plavix] 75 mg PO QAM 08/03/23 08/08/23 History Ibuprofen [Motrin Ib] 200 mg PO Q8H PRN 08/03/23 08/03/23 History Isosorbide Mononitrate [Isosorbide 60 mg PO HS 08/03/23 08/08/23 History Mononitrate ER] Omeprazole 40 mg PO QAM 08/03/23 08/08/23 History Propranolol HCl [Propranolol HCl 120 mg PO HS 08/03/23 08/08/23 History ER] Tirzepatide [Mounjaro] 2.5 mg SQ MO 08/03/23 08/08/23 History Verapamil Sr [Isoptin Sr] 120 mg PO HS 08/03/23 08/08/23 History lisinopriL 40 mg PO QAM 08/03/23 08/08/23 History traMADol HCL 50 mg PO HS 08/03/23 08/08/23 History Aspirin 81 mg PO BID #60 tab 08/08/23 Rx HYDROcodone/APAP 7.5-325MG [[place] 1 each PO Q6HR PRN #28 tab 08/08/23 Rx 7.5-325] Ondansetron [Zofran] 4 mg PO Q6HR PRN #30 tab 08/08/23 Rx Sennosides-Docusate Sodium 1 tab PO BID PRN #60 tablet 08/08/23 Rx [Senokot-S] Baclofen 10 mg PO Q8H PRN #30 tab 08/09/23 Rx Allergies Allergy/AdvReac Type Severity Reaction Status Date / Time No Known Allergies Allergy Verified 08/08/23 09:57 Physical Exam Vitals: Vital Signs Temp Pulse Pulse Resp BP Pulse Ox 08/08/23 14:47 96.9 F L 64 17 131/91 96 08/08/23 14:20 54 L 18 121/72 98 08/08/23 14:05 55 L 16 95/65 97 08/08/23 13:50 59 L 16 91/63 97 08/08/23 13:35 97.0 F L 57 L 16 95/58 95 08/08/23 10:43 61 18 152/71 96 08/08/23 09:56 98.0 F 61 18 128/65 96 Intake and Output 08/07/23 08/08/23 08/08/23 22:59 06:59 14:59 Intake Total 1351 Output Total 400 Balance 951 Intake: IV 1351 Output: Estimated Blood Loss 400 Other: Weight 130.8 kg Head normocephalic Neck supple Lungs clear to auscultation bilaterally no wheezing or crackles Heart regular rate and rhythm S1-S2, no rub or gallop Abdomen is soft nontender nondistended positive bowel sounds no hepatosplenomegaly Extremities no edema Neuro alert and orientated to 3 Results CBC & Chem 7: 08/09/23 05:14 08/09/23 05:14 Assessment and Plan Assessment: 1. Status post right hip arthroplasty 2. History of essential hypertension 3. History of hyperlipidemia 4. History of coronary artery disease with previous stent placement 5. Ex-smoker Thank you for this consultation we will continue to follow patient closely throughout stay Time with Patient: Greater than 30 (Greater than 60% of the total time spent in counseling and coordination of care)
--- NOTE | 2023-08-09 11:48 | P.PN ---
Subjective Progress Note Date: 08/09/23 this is a 57-year-old male patient of Dr. Breen who presented to the hospital for an elective right hip arthroplasty with Dr. weston on 08/08/2023. Patient has past medical history of CAD, diabetes mellitus, hyperlipidemia, hypertension, sleep apnea, previous heart cath with stents and ex-smoker. At this time patient is resting comfortably in bed. home medications resumed. Repeat labs for a.m. she denies chest pain or shortness breath. Patient denies nausea vomiting or diarrhea. Patient denies any urinary burning or frequency on 08/09/2023 patient's alert and oriented 3. Patient is currently postop day 1. Patient denies chest pain or shortness of breath. Patient denies nausea vomiting or diarrhea. Patient denies any urinary burning or frequency. Patient has been working with PT OT anticipate discharge home today per orthopedic services. Current vital signs temp 97.5, heart rate 69, respiratory rate 18, blood pressure 122/64 with a pulse ox 94% on room air Objective - Vital Signs Vital signs: Vital Signs Temp 97.5 F L 08/09/23 07:08 Pulse 69 08/09/23 07:08 Resp 18 08/09/23 07:08 BP 122/64 08/09/23 07:08 Pulse Ox 94 L 08/09/23 07:08 FiO2 Intake & Output 08/08/23 08/09/23 08/09/23 18:59 06:59 18:59 Intake Total 1351 120 Output Total 400 Balance 951 120 Weight 130.8 kg Intake: IV 1351 Oral 120 Output: Estimated Blood Loss 400 Other: Voiding Method Toilet # Voids 0 3 - Exam Head normocephalic Neck supple Lungs clear to auscultation bilaterally no wheezing or crackles Heart regular rate and rhythm S1-S2, no rub or gallop Abdomen is soft nontender nondistended positive bowel sounds no hepatosplenomegaly Extremities no edema. Right hip dressing clean dry and intact Neuro alert and orientated to 3 - Labs CBC & Chem 7: 08/09/23 05:14 08/09/23 05:14 Labs: Abnormal Lab Results - Last 24 Hours (Table) 08/08/23 08/08/23 08/09/23 Range/Units 16:19 20:27 05:14 WBC (4.50-10.00) X 10*3/uL RBC (4.40-5.60) X 10*6/uL Hgb (13.0-17.0) g/dL Hct (39.6-50.0) % Immature Gran # (0.00-0.04) X 10*3/uL Neutrophils # (1.80-7.70) X 10*3/uL Monocytes # (0.20-1.00) X 10*3/uL Eosinophils # (0.04-0.35) X 10*3/uL Glucose 149 H (70-110) mg/dL POC Glucose (mg/dL) 148 H 183 H (70-110) mg/dL Total Protein 5.7 L (6.2-8.2) g/dL Albumin 3.7 L (3.8-4.9) g/dL 08/09/23 08/09/23 08/09/23 Range/Units 05:14 06:06 11:21 WBC 14.38 H (4.50-10.00) X 10*3/uL RBC 4.15 L (4.40-5.60) X 10*6/uL Hgb 12.9 L (13.0-17.0) g/dL Hct 39.0 L (39.6-50.0) % Immature Gran # 0.08 H (0.00-0.04) X 10*3/uL Neutrophils # 11.87 H (1.80-7.70) X 10*3/uL Monocytes # 1.19 H (0.20-1.00) X 10*3/uL Eosinophils # 0 L (0.04-0.35) X 10*3/uL Glucose (70-110) mg/dL POC Glucose (mg/dL) 156 H 138 H (70-110) mg/dL Total Protein (6.2-8.2) g/dL Albumin (3.8-4.9) g/dL Assessment and Plan Assessment: 1. Status post right hip arthroplasty 2. History of essential hypertension 3. History of hyperlipidemia 4. History of coronary artery disease with previous stent placement 5. Ex-smoker Thank you for this consultation we will continue to follow patient closely throughout stay
[2023-08-14] MEDS ORDERED: NON FORMULARY DRUG (Tirzepatide [Mounjaro] 2.5 MG/0.5 ML Pen.Injctr) SQ SCH (10:00)
== END 2023-08-09 13:05 | disposition home or self-care (01) ==
LOC: OR 09:34 → 4SSUR 13:28 → OR 08-09 13:05
PROVIDERS: ATTEND Orthopaedic Surgery
DX: M87.851 Other osteonecrosis, right femur (principal); M16.11 Unilateral primary osteoarthritis, right hip; G89.18 Other acute postprocedural pain; E78.49 Other hyperlipidemia; Z79.82 Long term (current) use of aspirin; I10 Essential (primary) hypertension; Z79.899 Other long term (current) drug therapy; Z98.890 Other specified postprocedural states; F10.90 Alcohol use, unspecified, uncomplicated; Z87.891 Personal history of nicotine dependence
CPT/HCPCS: 97161; 64447; 80053; 85025; 73501; 27130; C1776; J2250; J1100; J0690 ×3; J2405; J1170 ×2; J2795

== ENCOUNTER → 2024-10-21 | Outpatient (CLI) | payer BC ==
[2024-10-21 15:28] LABS: Basophils # (A) 0.02 X 10*3/uL (0.00-0.10); Basophils % (A) 0.4 %; Eosinophils # (A) 0.11 X 10*3/uL (0.04-0.35); Eosinophils % (A) 2.4 %; HCT 44.6 % (39.6-50.0); HGB 14.9 g/dL (13.0-17.0); Immature Grans, Automated 0 %; Lymphocytes # (A) 1.47 X 10*3/uL (0.90-5.00); MCH 30.8 pg (27.0-32.0); MCHC 33.4 g/dL (32.0-37.0); MCV 92.3 FL (80.0-97.0); Mean Platelet Volume 10.5 FL (9.5-12.2); Monocytes # (A) 0.41 X 10*3/uL (0.20-1.00); Monocytes % (A) 8.9 %; NRBC Per 100 WBC 0 X 10*3/uL (0.00-0.01); Neutrophils # (A) 2.59 X 10*3/uL (1.80-7.70); Neutrophils % (A) 56.3 %; Platelet Count 196 X 10*3/uL (140-440); RBC 4.83 X 10*6/uL (4.40-5.60); RDW 12.4 % (11.5-14.5)
[2024-10-21 15:58] LABS: ALT 17 U/L (10-49); AST 25 U/L (14-35); Albumin 4.4 g/dL (3.8-4.9); Alkaline Phosphatase 95 U/L (41-126); BUN/Creat Ratio 16.73 Ratio (12.00-20.00); Blood Urea Nitrogen 18.4 mg/dL (9.0-27.0); Calcium 9.1 mg/dL (8.7-10.3); Carbon Dioxide 24.8 mmol/L (21.6-31.8); Chloride 107 mmol/L (96-109); Chol/HDL Ratio 3.06 Ratio; Globulin 2.2 g/dL (1.6-3.3); Glucose 108 mg/dL (70-110); LDL Cholesterol,Calculated 48.2 mg/dL (0.0-131.0); Potassium 4.2 mmol/L (3.5-5.5); Sodium 142 mmol/L (135-145); Total Bilirubin 1.4 mg/dL (0.3-1.2); Total Protein 6.6 g/dL (6.2-8.2); VLDL Calculation 19.76 mg/dL (5.00-40.00)
== END | disposition home or self-care (01) ==
LOC: LABWHC1 09:36
PROVIDERS: ATTEND Family Medicine
DX: E78.00 Pure hypercholesterolemia, unspecified (principal); E11.9 Type 2 diabetes mellitus without complications; I10 Essential (primary) hypertension
CPT/HCPCS: 36415; 80053; 80061; 83036; 84443; 85025